=== PATIENT | male | born 1965 | race Caucasian/White ===

== ENCOUNTER 2025-02-28 13:48 | Inpatient (IN) | payer SELFPAY ==
[2025-02-28] VITALS (14 sets, daily range): BP systolic 94–164; BP diastolic 52–73; PULSE 68–83; RESP 14–20; TEMP 98.8–99.6; O2SAT 94–95
[~2025-02-28] VITALS: Ht 177.8 cm; Wt 105.2 kg
[2025-02-28] MEDS ORDERED: LIDOCAINE HCL 400MG/20ML VIAL ONE (14:58)
[2025-02-28] MEDS ORDERED: IOHEXOL 350 MG/ML 100ML INFUS..BTL IV ONE (14:59)
[2025-02-28] MEDS ORDERED: HEParin-NS 1,000 UNIT/500 ML 1,000 ML IV ONE (14:59)
[2025-02-28] MEDS ORDERED: NITROGLYCERIN 50MG VIAL ONE (14:59)
[2025-02-28] MEDS ORDERED: BIVALIRUDIN 250 MG/VIAL IV ONE (15:10)
[2025-02-28] MEDS ORDERED: MIDAZOLAM HCL 1 MG/ML 2ML VIAL ONE (15:10)
[2025-02-28 15:16] LABS: IMMATURE GRANULOCYTE ABSOLUTE 0.10 K/uL (0-1); NUCLEATED RED BLOOD CELLS 0.0 % (0.0-0.19); PLATELET COUNT (AUTO) 262 K/uL (130-400); RED BLOOD CELL COUNT(AUTO) 5.00 MIL/uL (4.50-6.20); RED CELL DISTRIBUTION WIDTH 13.1 % (11.0-15.5); WHITE BLOOD COUNT (AUTO) 14.1 K/uL (4.8-10.8)
[2025-02-28 15:27] LABS: INR 1.13 (0.85-1.15)
[2025-02-28 15:30] LABS: ERYTHROCYTE SEDIMENTATION RATE 49 MM/HR (0-20)
[2025-02-28] MEDS ORDERED: NITROGLYCERIN 0.4 MG SL TAB SL PRN ×2 (15:30→16:30)
[2025-02-28] MEDS ORDERED: MAGNESIUM 2GM PREMIX 50ML 50 ML IV SCH (15:30)
[2025-02-28] MEDS ORDERED: PoTASSium chl 10% ELIXIR 20MEQ 20 MEQ/15 ML UDCUP PO PRN (15:30)
[2025-02-28 15:41] LABS: ASPARTATE AMINOTRANSFERASE 108.0 U/L (10-37); CREATININE 1.0 mg/dL (0.5-1.3); GLOMERULAR FILTR. RATE CALC 87.0 mL/min (>90); GLUCOSE,RANDOM 203.0 mg/dL (70-105); LACTATE DEHYDROGENASE 608.0 U/L (81-234); LDL DIRECT 97.0 mg/dL (0-99); SODIUM SERUM 133.0 mmol/L (136-145); TOTAL PROTEIN, SERUM 7.2 g/dL (6.0-8.3); UREA NITROGEN, BLOOD 27.0 mg/dL (7-18)
--- NOTE | 2025-02-28 15:41 | CONS ---
Cardiac Consult Note CONSULT NOTE DATE OF SERVICE: REFERRING PROVIDER: JULI QUIROGA MD REASON FOR CONSULT: Non ST segment elevation myocardial infarction HPI: 60-year-old avid smoker who had a prior history of myocardial infarction in 2016 in [facility] and when she received two stents to unknown vessel who was in [place] at a job as he is a truck engine technician and states he experienced some significant chest discomfort went to the hospital was admitted had a coronary angiogram done through a right radial artery approach and was told they could not see previous stents and they also were unable to deliver equipment to the occluded vessel. He states he was treated medically and no balloons and stents were utilized. The patient then went on to return home on Tuesday from [place] and he states he was unable to get any of the medications that they had prescribed to him and he actually went an established care with a supervisor bottle machines and [place] by the name of Dr. Goldstein at heart [facility] and was given medications and he states yesterday he started having significant chest discomfort that would not resolve. The patient went to [facility] and [place] initial [place] [id number]. The patient had EKG changes consistent with ischemia. [facility] was notified and any artery ER transfer was established as patient was having ongoing symptoms of chest pain. The patient states prior to his event that took place on February 18 in [place] he has been symptom free from any chest pains discomfort or tightness. The patient states when he was dismissed he had not had any recurrent symptoms of chest pain until 1-1/2 days prior to admission on this hospitalization. The patient states that he was told in [place] that his heart was strong and indeed not week or compromised in ejection fraction ROS: No fever, headache, chest pain, abdominal pain, nausea, vomiting, or diarrhea. PMHX: Diabetes mellitus Prior NH with prior stent placement done in [facility] unknown breath Nicotine abuse smoking one pack per cigarettes daily Dyslipidemia PSHX: Noncontributory FH: Noncontributory in this patient with known coronary atherosclerosis SOCIAL: front load trash truck driver Smoker one pack per day recently reduced significantly PHYSICAL EXAMINATION: GENERAL: No acute distress. HEENT: Normocephalic, atraumatic. CARDIAC: Positive S1 and S2. No murmurs. LUNGS: Clear to auscultation bilaterally. ABDOMEN: Bowel sounds present, soft, nontender. EXTREMITIES: No edema bilaterally. NEUROLOGIC: Cranial nerves 2-12 grossly intact. PSYCHIATRIC: Calm. ASSESSMENT: Non ST segment elevation myocardial infarction Post infarct angina with prior NH in [place] February 18, 2025 PLAN: At this time we will proceed with coronary angiography. Risks and goals of procedure were discussed with the patient and he is willing to proceed. All questions has been answered. Further recommendations to follow up pending results of angiography. Postprocedure we will institute guideline directed medical therapy to include sodium glucose transport to inhibitor, beta blockade, TUAN inhibitor/ARB, dual antiplatelet therapy and high-dose statin. If patient indeed needs surgical revascularization would consider holding off on dual antiplatelet therapy and CT surgery consultation will be in order. Vital Signs 02/28/25 02/28/25 02/28/25 02/28/25 14:45 14:45 14:45 15:00 Temp 99.7 Pulse 75 82 72 Resp 20 20 20 B/P (MAP) 114/64 122/61 (81) 164/70 (101) Pulse Ox 95 95 96 96 O2 Delivery Nasal Cannula* Nasal Cannula O2 Flow Rate 2 2.0 FiO2 28 28 28 28 Laboratory Tests Test 02/28/25 15:07 White Blood Count 14.1 K/uL (4.8-10.8) Red Blood Count 5.00 MIL/uL (4.50-6.20) Hemoglobin 14.5 g/dL (14.0-18.0) Hematocrit 43.2 % (42-54) Mean Corpuscular Volume 86.4 fL (79-99) Mean Corpuscular Hemoglobin 29.0 pg (27.0-33.0) Mean Corpuscular Hemoglobin Concent 33.6 g/dL (32.0-36.0) Red Cell Distribution Width 13.1 % (11.0-15.5) Platelet Count 262 K/uL (130-400) Mean Platelet Volume 10.1 fL (7.5-10.5) Immature Granulocyte % (Auto) 0.7 % (0-1) Neutrophils (%) (Auto) 77.0 % (40.0-77.0) Lymphocytes (%) (Auto) 12.5 % (21.0-51.0) Monocytes (%) (Auto) 9.6 % (3.0-13.0) Eosinophils (%) (Auto) 0.0 % (0.0-8.0) Basophils (%) (Auto) 0.2 % (0.0-5.0) Neutrophils # (Auto) 10.9 K/uL (1.8-7.7) Lymphocytes # (Auto) 1.8 K/uL (1.0-4.8) Monocytes # (Auto) 1.4 K/uL (0.1-1.0) Eosinophils # (Auto) 0.00 K/uL (0.00-0.70) Basophils # (Auto) 0.03 K/uL (0.00-0.20) Absolute Immature Granulocyte (auto 0.10 K/uL (0-1) Nucleated Red Blood Cells 0.0 % (0.0-0.19) Erythrocyte Sedimentation Rate 49 MM/HR (0-20) Prothrombin Time 11.8 SEC (9.6-11.6) Prothromb Time International Ratio 1.13 (0.85-1.15) Activated Partial Thromboplast Time 51.2 SEC (26.3-35.5) Current Medications Medications Dose Ordered Sig/Patrick Route PRN Reason Start Time Stop Time Status Last Admin Lidocaine HCl 20 ml STK-MED ONCE .ROUTE 02/28/25 14:58 02/28/25 14:59 DC Iohexol 35,000 mg STK-MED ONCE IV 02/28/25 14:59 02/28/25 14:59 DC Nicardipine HCl 25 mg STK-MED ONCE IV 02/28/25 14:59 02/28/25 14:59 DC Heparin Sodium (Porcine) 10,000 unit STK-MED ONCE .ROUTE 02/28/25 14:59 02/28/25 14:59 DC Heparin Sodium/ Sodium Chloride 1,000 ml @ As Directed STK-MED ONCE IV 02/28/25 14:59 02/28/25 14:59 DC Nitroglycerin 50 mg STK-MED ONCE .ROUTE 02/28/25 14:59 02/28/25 14:59 DC Insulin Human Regular INSULIN SLIDING SCAL... ACHS SQ 02/28/25 16:30 03/30/25 16:29 Aspirin 81 mg DAILY PO 03/01/25 09:00 03/31/25 08:59 Famotidine 20 mg BID PO 02/28/25 21:00 03/30/25 20:59 Magnesium Sulfate 50 ml @ 0 mls/hr PROTOCOL IV 02/28/25 15:30 03/30/25 15:29 Fentanyl Citrate 100 mcg STK-MED ONCE .ROUTE 02/28/25 15:10 02/28/25 15:10 DC Midazolam HCl 2 mg STK-MED ONCE .ROUTE 02/28/25 15:10 02/28/25 15:10 DC Bivalirudin 250 mg STK-MED ONCE IV 02/28/25 15:10 02/28/25 15:10 DC Clopidogrel Bisulfate 75 mg DAILY PO 03/01/25 09:00 02/28/25 15:19 DC Amiodarone HCl 200 mg DAILY PO 03/01/25 09:00 03/31/25 08:59 Isosorbide Mononitrate 30 mg DAILY PO 03/01/25 09:00 03/31/25 08:59 Empaglifozin 25 mg DAILY PO 03/01/25 09:00 03/31/25 08:59 Clopidogrel Bisulfate 75 mg DAILY PO 03/01/25 09:00 03/31/25 08:59 Atorvastatin Calcium 40 mg HS PO 02/28/25 21:00 03/30/25 20:59 JULI QUIROGA MD Feb 28, 2025 15:41
[2025-02-28] MEDS ORDERED: GLIP5TAB15 PO (15:44)
[2025-02-28] MEDS ORDERED: RANO10005 PO (15:44)
[2025-02-28] MEDS ORDERED: METO25TA6 PO (15:44)
[2025-02-28] MEDS ORDERED: LISI40TA15 PO (15:44)
[2025-02-28] MEDS ORDERED: EMPA25TA PO (15:44)
[2025-02-28] MEDS ORDERED: AMIO200T73 PO ×2 (15:44)
[2025-02-28] MEDS ORDERED: ISOS30TA92 PO (15:44)
[2025-02-28 15:45] LABS: CREATINE KINASE, TOTAL 635.0 U/L (21-232)
[2025-02-28] MEDS ORDERED: ATROPINE 1MG SYG IVP ONE (15:54)
[2025-02-28] MEDS ORDERED: NOREPINEPHRINE BITARTRATE 1 MG/1 ML ML IV ONE ×2 (15:55→15:56)
[2025-02-28] MEDS ORDERED: IOHEXOL-350 50ML VIAL IV ONE (15:57)
[2025-02-28] MEDS ORDERED: RANO500T6 PO (16:01)
--- NOTE | 2025-02-28 16:51 | PRN ---
Left Heart Cath-Turk PROCEDURE: 1. Right common femoral arterial sheath placement. 2. Selective coronary angiogram. 3. Left heart catheterization. 4. Left ventriculogram. 5. Unsuccessful attempt at revascularization of chronically occluded right coronary artery INDICATIONS: [] Post infarct angina DESCRIPTION OF PROCEDURE: The patient was brought to the catheterization suite and prepped and draped in sterile fashion. An IV was started, if not already in place and both groins were exposed for arterial access. 1% lidocaine was used for local anesthesia and then a micropuncture kit was used to gain access and once free-flowing blood was seen, modified Seldinger technique was utilized to place a 6 Dominican sheath into the right common femoral artery. Next, preformed JL4 and JR4 Catheters were then used to selectively engage the [place] coronary vessels and multiple hand contrast injections were performed in different views to define the coronary anatomy. INTERVENTIONAL REPORT: Next a six Dominican JR4 guide catheter with sideholes was then placed into be takeoff of the right coronary artery which was occluded at the ostium. We were able to maintain pressure and initially I used a choice PT extra-support wire to try to cross the chronic total occlusion and then I used a tapered catheter for support what seemed to be subintimal and was unable to advance the wire further. Follow up contrast injection for allowing us of dye section perforation or any kind of staining that took place. It was felt attempts should be terminated as previous reception specialist in [place] approximately 10 days prior had also attempted to revascularize this vessel but were unsuccessful. At end of case a six Dominican angled pigtail was used across the aortic valve pressure measurements were obtained and then a left ventriculogram was done in the 30 ALMONTE position. Next a sheath shot was done and then a closure device was used to include Angio-Seal which was successful. No complications occurred. FINDINGS: The left main artery is free of any significant disease and it bifurcates into the LAD and left circumflex vessel. 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 It should be noted that in the mid LAD after the aneurysmal segment just after a small diagonal branch 2. Was a portion of the LAD that had an active myocardial bridge present which seemed to decrease in size approximately 50% in systole. The left circumflex vessel gives rise to a high obtuse marginal branch 1. Which bifurcates distally and is free of any significant disease. The ongoing interventricular left circumflex vessel bifurcates distally. This is a nondominant system. There are significant uber-ih-cuadw collaterals filling the RPDA and RPL. There was 100% flush occlusion essentially at the takeoff of the right coronary artery with a small sinoatrial branch noted. Once again the distal RCA has been filled with nxip-gi-rziwa collaterals. The ejection fraction was estimated approximately 50-55% with inferior wall hypokinesis present. There was no evidence of aortic stenosis or mitral regurgitation. JULI TURK MD Feb 28, 2025 16:51
--- NOTE | 2025-02-28 16:55 | HP ---
[facility] HISTORY AND PHYSICAL Date of Service: Feb 28, 2025 Time of Service: 16:55 HISTORY OF PRESENT ILLNESS: Date of service: 02/28/2025, patient was seen in [facility] room 211, 60-year-old male with history of hypertension, hyperlipidemia, type 2 diabetes mellitus, previous history of [place] in 2016 status post PCI with stent placement, recent history of [place] in [place] on 02/19/2025 who presented as a transfer from [facility] for management of NSTEMI. 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 He was hospitalized in [place] on 02/19/2025 after he presented with chest pain. He underwent coronary angiogram and was told that he had blockages which could not be opened up. He return back [place] the [place] on Tuesday and close to 12:30 a.m. today, he started having significant fzkfsnnp-ap-heihlo intensity chest pain. Lasted for several hours and prompted him to come to the ER for further evaluation in [facility]. On presentation to [facility], high sensitivity [place] [id number]. Patient was transferred to [facility] for further evaluation with cardiac catheterization/coronary angiogram. Patient was seen at bedside and states that chest pain is currently 4-5/10 in intensity. He has been taking all medications that were prescribed in [place]. Denies any Shortness or breath, syncope or dizziness. We will monitor this patient closely in ICU. Patient was already seen by Dr. Turk with plans for cardiac catheterization later today. REVIEW OF SYSTEMS CONSTITUTIONAL: Denies fevers, chills, or night sweats. No unintentional weight loss reported. NEUROLOGICAL: Denies headache, amaurosis fugax, motor weakness, sensory defi cit, vertigo/spinning sensation, gait abnormalities, or tremors. ENT: No hearing loss, otalgia, otorrhea, rhinitis, rhinorrhea, hoarseness, or sore throat. CARDIOVASCULAR: moderate to severe chest pain that started earlier today PULMONARY: Denies any shortness of breath, cough, phlegm/sputum, hemoptysis, pleuritic chest pain. SLEEP: Denies morning headaches, daytime somnolence or napping. Denies difficulty falling asleep, staying asleep, waking from sleep. Denies knowledge of snoring. GASTROINTESTINAL: Denies any type of dysphagia to either liquids or solids. Denies nausea, vomiting, pyrosis, early satiety, abdominal pain, diarrhea, constipation, or changes in stool consistency or caliber. Denies coffee-ground emesis, hematemesis, hematochezia, or melanotic stools. GENITOURINARY: Denies frequency, urgency, nocturia, hematuria or incontinence (Storage/Irritative symptoms.) Low urinary stream, straining to void, urinary intermittency or hesitancy, splitting of the voiding stream, terminal dribbling. ENDOCRINOLOGIC: Denies polyuria, polydipsia, polyphagia or heat/cold intolerances. HEMATOLOGIC: Denies thrombophilia/previous clots, or coagulopathy/bleeding disorders. ONCOLOGIC: Denies personal history of malignancy. DERMATOLOGIC: Denies rashes or pruritus. PSYCHIATRIC: Denies any suicidal or homicidal ideation. Denies hallucinations. PAST MEDICAL HISTORY: HTN, hyperlipidemia, history of [place] in 2016 in [facility] status post PCI, recent history of [place] requiring hospitalization in [place] on 02/19/2025, type 2 diabetes mellitus, obesity PAST SURGICAL HISTORY: Reports having had cardiac catheterization in 2016 and recently in [place] and 02/19/2025 PAST SOCIAL HISTORY: Denies significant alcohol consumption, smokes about a pack a day for long time, quit smoking about three days ago, denies any illicit drug use FAMILY HISTORY: Reports family history of heart disease Allergies: No known drug allergies Home medications: amiodarone 200 mg daily, Jardiance 25 mg daily, glipizide 5 mg b.i.d., isosorbide mononitrate 30 mg daily, lisinopril 40 mg daily, metoprolol [id number] mg b.i.d., ranolazine 500 mg twice daily Coded Allergies: No Known Drug Allergies (Unverified Allergy, Unknown, 02/28/25) PHYSICAL EXAM GENERAL APPEARANCE: The patient is awake, alert, and oriented, in no acute cardiopulmonary distress. NEUROLOGICAL: Cranial nerves II-XII grossly intact. Motor is 5/5 in bilateral upper and lower extremities proximal to distal. No sensory deficits. HEENT: Face is symmetric. Pupils are equal and reactive. Extraocular movements are intact. NECK: Supple. No JVD. No thyromegaly. No submental, submandibular, pre- /postauricular, occipital or supraclavicular lymphadenopathy. CHEST: Normal chest expansion. No Telemetry. LUNGS: Absence of any rales, rhonchi or any wheezing. CARDIOVASCULAR: Regular. S1 and S2 normal. No appreciable rubs, murmurs or gallops. ABDOMEN: Soft, nontender, and nondistended. There is no rebound, voluntary guarding, or rigidity. : Deferred. No Kirkpatrick. EXTREMITIES: Non-edematous and not cyanotic. No clubbing. Good capillary refill. SKIN: No skin breakdown. Vital Sign (Last 24 Hours) 02/28/25 02/28/25 14:45 15:00 Temp 99.7 Pulse 72 Resp 20 B/P (MAP) 164/70 (101) Pulse Ox 96 O2 Delivery Nasal Cannula O2 Flow Rate 2.0 FiO2 28 LABS: Laboratory: Test 02/28/25 15:07 Range/Units White Blood Count 14.1 H 4.8-10.8 K/uL Red Blood Count 5.00 4.50-6.20 MIL/uL Hemoglobin 14.5 14.0-18.0 g/dL Hematocrit 43.2 42-54 % Mean Corpuscular Volume 86.4 79-99 fL Mean Corpuscular Hemoglobin 29.0 27.0-33.0 pg Mean Corpuscular Hemoglobin Concent 33.6 32.0-36.0 g/dL Red Cell Distribution Width 13.1 11.0-15.5 % Platelet Count 262 130-400 K/uL Mean Platelet Volume 10.1 7.5-10.5 fL Immature Granulocyte % (Auto) 0.7 0-1 % Neutrophils (%) (Auto) 77.0 40.0-77.0 % Lymphocytes (%) (Auto) 12.5 L 21.0-51.0 % Monocytes (%) (Auto) 9.6 3.0-13.0 % Eosinophils (%) (Auto) 0.0 0.0-8.0 % Basophils (%) (Auto) 0.2 0.0-5.0 % Neutrophils # (Auto) 10.9 H 1.8-7.7 K/uL Lymphocytes # (Auto) 1.8 1.0-4.8 K/uL Monocytes # (Auto) 1.4 H 0.1-1.0 K/uL Eosinophils # (Auto) 0.00 0.00-0.70 K/uL Basophils # (Auto) 0.03 0.00-0.20 K/uL Absolute Immature Granulocyte (auto 0.10 0-1 K/uL Nucleated Red Blood Cells 0.0 0.0-0.19 % Erythrocyte Sedimentation Rate 49 H 0-20 MM/HR Prothrombin Time 11.8 H 9.6-11.6 SEC Prothromb Time International Ratio 1.13 0.85-1.15 Activated Partial Thromboplast Time 51.2 H 26.3-35.5 SEC Sodium Level 133 L 136-145 mmol/L Potassium Level 4.1 3.5-5.1 mmol/L Chloride Level 100 L 101-111 mmol/L Carbon Dioxide Level 23 21-32 mmol/L Blood Urea Nitrogen 27 H 7-18 mg/dL Creatinine 1.0 0.5-1.3 mg/dL Glomerular Filtration Rate Calc 87 >90 mL/min Random Glucose 203 H 70-105 mg/dL Hemoglobin A1c 10.0 H 4.0-6.0 % Estimated Average Glucose (eAG) 240 H 70-126 mg/dL Total Calcium 8.8 8.5-10.1 mg/dL Magnesium Level 2.30 1.80-2.40 mg/dL Total Bilirubin 1.2 H 0.2-1.0 mg/dL Aspartate Amino Transf (AST/SGOT) 108 H 10-37 U/L Alanine Aminotransferase (ALT/SGPT) 47 12-78 U/L Alkaline Phosphatase 134 50-136 U/L Lactate Dehydrogenase 608 H 81-234 U/L Total Creatine Kinase 635 *H 21-232 U/L Troponin I High Sensitivity 53545.6 *H 4-75 ng/L C-Reactive Protein, Quantitative 182.10 H 0.5-3.0 mg/L Total Protein 7.2 6.0-8.3 g/dL Albumin 3.3 L 3.5-5.0 g/dL Triglycerides Level 110 30-200 mg/dL Cholesterol Level 158 <200 mg/dL LDL Cholesterol 97 0-99 mg/dL HDL Cholesterol 41 29-71 mg/dL Procalcitonin 0.16 0.05-0.5 ng/mL Thyroid Stimulating Hormone (TSH) 1.14 0.36-3.74 uIU/mL Current Medications Medications (Trade) Dose Ordered Sig/Patrick Route PRN Reason Start Time Stop Time Status Last Admin Dose Admin Amiodarone HCl (pacERONE 200MG) 200 mg DAILY PO 03/01/25 09:00 03/31/25 08:59 Aspirin (Aspirin 81mg Chew Tab) 81 mg DAILY PO 03/01/25 09:00 03/31/25 08:59 Atorvastatin Calcium (LIPItor 40MG) 40 mg HS PO 02/28/25 21:00 03/30/25 20:59 Clopidogrel Bisulfate (plaVIX 75MG) 75 mg DAILY PO 03/01/25 09:00 02/28/25 15:19 DC Clopidogrel Bisulfate (plaVIX 75MG) 75 mg DAILY PO 03/01/25 09:00 03/31/25 08:59 Empaglifozin (Jardiance 25mg) 25 mg DAILY PO 03/01/25 09:00 03/31/25 08:59 Famotidine (Pepcid 20mg Tab) 20 mg BID PO 02/28/25 21:00 03/30/25 20:59 Heparin Sodium/ Dextrose 250 ml @ 0 mls/hr PROTOCOL IV 02/28/25 18:30 03/30/25 18:29 UNV Insulin Human Regular (humuLIN R 100 UNIT/ML 3ML) INSULIN SLIDING SCAL... ACHS SQ 02/28/25 16:30 03/30/25 16:29 Isosorbide Mononitrate (Imdur 30mg Sr) 30 mg DAILY PO 03/01/25 09:00 03/31/25 08:59 Lisinopril (Prinivil 40mg) 40 mg DAILY PO 03/01/25 09:00 03/31/25 08:59 Magnesium Sulfate 50 ml @ 0 mls/hr PROTOCOL IV 02/28/25 15:30 03/30/25 15:29 Miscellaneous Medication (Ranolazine (Ranolazine ER)) 1 tab BID PO 02/28/25 21:00 02/28/25 16:01 DC Morphine Sulfate (morPHINE 2MG SYG) 2 mg Q6H PRN IVP SEVERE PAIN (7-10) 02/28/25 15:30 03/07/25 15:29 Nitroglycerin (Nitrostat) 0.4 mg AD PRN SL CHEST PAIN 02/28/25 15:30 03/30/25 15:29 Nitroglycerin (Nitrostat) 0.4 mg AD PRN SL CHEST PAIN 02/28/25 16:30 03/30/25 16:29 Potassium Chloride 100 ml @ 100 mls/hr AD PRN IV POTASSIUM PROTOCOL 02/28/25 15:30 03/30/25 15:29 Potassium Chloride (K-Dur/Klor-Con 20meq) 20 meq AD PRN PO POTASSIUM PROTOCOL 02/28/25 15:30 03/30/25 15:29 Potassium Chloride (KCl 10% Elixir 20meq/15ml) 20 meq AD PRN PO POTASSIUM PROTOCOL 02/28/25 15:30 03/30/25 15:29 Sodium Chloride 1,000 ml @ 100 mls/hr Q10H IV 02/28/25 16:30 02/28/25 22:29 DIAGNOSTICS / RADIOLOGY: none ASSESSMENT: Non ST-elevation WY/ACS, POA Recent history of [place] in 02/19/2025 in [place], POA Remote history of [place] in 2016 status post PCI in [place], POA Obesity, POA Tobacco use disorder, POA Hypertension, POA Hyperlipidemia, POA Type 2 diabetes mellitus, uncontrolled, POA Leukocytosis, POA PLAN: Patient will be admitted to CCU Patient will be kept NPO for cardiac catheterization/angiogram later today for management of NSTEMI Continue with dual antiplatelet therapy with aspirin and Plavix Patient will be kept on heparin drip Patient to continue with guideline directed medical therapy with lisinopril 40 mg daily, metoprolol tartrate 25 mg twice daily, Jardiance 25 mg daily We will obtain a 2D echocardiogram to assess LVEF and rule out significant wall motion abnormality Patient is being prescribed amiodarone 200 mg daily as outpatient which will be continued, patient is unsure if he has any issues with cardiac arrhythmias previously Patient reports having issues with symptoms of sleep apnea, we will have pulmonology follow up with this patient, patient will benefit from sleep study as outpatient We will maintain potassium greater than four and magnesium greater than two We will start patient on basal insulin with Lantus 10 units tonight, we will keep patient on sliding scale insulin a.c. and HS All labs will be repeated in the morning Prognosis: Guarded Plan of care was discussed with patient at bedside, Ap Masterson MD Advanced Care Planning: Which of the following were discussed: Hospice care: Yes __ No _X_ Therapeutic options: Yes __X No __ Advance directives: Yes _X_ No __ Other discussions: Discussed with who?: Patient Voluntary nature of this service was explained to the patient? Yes _x_ No __ Amount of time spent: 20 minutes AP MASTERSON MD Feb 28, 2025 16:55
[2025-02-28] MEDS: 0.9%NACL 1000ML 1,000 ML IV SCH (18:24)
[2025-02-28] MEDS: FAMOTIDINE 20MG TAB PO SCH (21:08)
[2025-02-28] MEDS: RANOLAZINE 500 MG TAB.SR.12H PO SCH (21:08)
[2025-03-01] VITALS (48 sets, daily range): BP systolic 90–140; BP diastolic 50–84; PULSE 60–83; RESP 12–28; TEMP 97.9–98.8; O2SAT 94–96
[2025-03-01 00:47] LABS: INR 1.12 (0.85-1.15)
[2025-03-01 04:20] LABS: IMMATURE GRANULOCYTE ABSOLUTE 0.08 K/uL (0-1); NUCLEATED RED BLOOD CELLS 0.0 % (0.0-0.19); PLATELET COUNT (AUTO) 221 K/uL (130-400); RED BLOOD CELL COUNT(AUTO) 4.47 MIL/uL (4.50-6.20); RED CELL DISTRIBUTION WIDTH 13.1 % (11.0-15.5); WHITE BLOOD COUNT (AUTO) 11.4 K/uL (4.8-10.8)
[2025-03-01 04:46] LABS: ASPARTATE AMINOTRANSFERASE 73.0 U/L (10-37); CREATININE 1.0 mg/dL (0.5-1.3); GLOMERULAR FILTR. RATE CALC 87.0 mL/min (>90); GLUCOSE,RANDOM 151.0 mg/dL (70-105); SODIUM SERUM 136.0 mmol/L (136-145); TOTAL PROTEIN, SERUM 6.5 g/dL (6.0-8.3); UREA NITROGEN, BLOOD 38.0 mg/dL (7-18)
--- NOTE | 2025-03-01 07:46 | PN ---
PROGRESS NOTE PROBLEM LIST: [] Recent non ST segment elevation myocardial infarction on February 18 in [place] Per patient history no percutaneous coronary revascularization was completed Post infarct angina with possible associated pericarditis Diabetes mellitus Nicotine abuse Acute diastolic congestive heart failure present on admission Repeat coronary angiogram revealing a flush occlusion of ostial RCA with patent left coronary system with aneurysmal changes noted and a mid LAD myocardial bridge INTERIM HISTORY OF PRESENT ILLNESS: Overnight patient was maintained on heparin drip and cardiac medications and had no recurrent symptoms. REVIEW OF SYSTEMS: No fever, headache, chest pain, abdominal pain, nausea, vomiting, or diarrhea. VITAL SIGNS Vital Signs Date Time Temp Pulse Resp B/P (MAP) Pulse Ox O2 Delivery O2 Flow Rate FiO2 03/01/25 06:00 69 18 113/52 96 Room Air 03/01/25 04:00 0 21 03/01/25 04:00 98.2 Laboratory Tests 02/28/25 15:07 03/01/25 03:55 LABS/MEDS Laboratory Tests Test 02/28/25 15:07 02/28/25 16:57 02/28/25 20:45 03/01/25 00:28 White Blood Count 14.1 K/uL (4.8-10.8) H Red Blood Count 5.00 MIL/uL (4.50-6.20) Hemoglobin 14.5 g/dL (14.0-18.0) Hematocrit 43.2 % (42-54) Mean Corpuscular Volume 86.4 fL (79-99) Mean Corpuscular Hemoglobin 29.0 pg (27.0-33.0) Mean Corpuscular Hemoglobin Concent 33.6 g/dL (32.0-36.0) Red Cell Distribution Width 13.1 % (11.0-15.5) Platelet Count 262 K/uL (130-400) Mean Platelet Volume 10.1 fL (7.5-10.5) Immature Granulocyte % (Auto) 0.7 % (0-1) Neutrophils (%) (Auto) 77.0 % (40.0-77.0) Lymphocytes (%) (Auto) 12.5 % (21.0-51.0) L Monocytes (%) (Auto) 9.6 % (3.0-13.0) Eosinophils (%) (Auto) 0.0 % (0.0-8.0) Basophils (%) (Auto) 0.2 % (0.0-5.0) Neutrophils # (Auto) 10.9 K/uL (1.8-7.7) H Lymphocytes # (Auto) 1.8 K/uL (1.0-4.8) Monocytes # (Auto) 1.4 K/uL (0.1-1.0) H Eosinophils # (Auto) 0.00 K/uL (0.00-0.70) Basophils # (Auto) 0.03 K/uL (0.00-0.20) Absolute Immature Granulocyte (auto 0.10 K/uL (0-1) Nucleated Red Blood Cells 0.0 % (0.0-0.19) Erythrocyte Sedimentation Rate 49 MM/HR (0-20) H Prothrombin Time 11.8 SEC (9.6-11.6) H 11.7 SEC (9.6-11.6) H Prothromb Time International Ratio 1.13 (0.85-1.15) 1.12 (0.85-1.15) Activated Partial Thromboplast Time 51.2 SEC (26.3-35.5) H 47.3 SEC (26.3-35.5) H Sodium Level 133 mmol/L (136-145) L Potassium Level 4.1 mmol/L (3.5-5.1) Chloride Level 100 mmol/L (101-111) L Carbon Dioxide Level 23 mmol/L (21-32) Blood Urea Nitrogen 27 mg/dL (7-18) H Creatinine 1.0 mg/dL (0.5-1.3) Glomerular Filtration Rate Calc 87 mL/min (>90) Random Glucose 203 mg/dL (70-105) H Hemoglobin A1c 10.0 % (4.0-6.0) H Estimated Average Glucose (eAG) 240 mg/dL (70-126) H Total Calcium 8.8 mg/dL (8.5-10.1) Magnesium Level 2.30 mg/dL (1.80-2.40) Total Bilirubin 1.2 mg/dL (0.2-1.0) H Aspartate Amino Transf (AST/SGOT) 108 U/L (10-37) H Alanine Aminotransferase (ALT/SGPT) 47 U/L (12-78) Alkaline Phosphatase 134 U/L (50-136) Lactate Dehydrogenase 608 U/L (81-234) H Total Creatine Kinase 635 U/L (21-232) *H Troponin I High Sensitivity 99282.6 ng/L (4-75) *H C-Reactive Protein, Quantitative 182.10 mg/L (0.5-3.0) H Total Protein 7.2 g/dL (6.0-8.3) Albumin 3.3 g/dL (3.5-5.0) L Triglycerides Level 110 mg/dL (30-200) Cholesterol Level 158 mg/dL (<200) LDL Cholesterol 97 mg/dL (0-99) HDL Cholesterol 41 mg/dL (29-71) Procalcitonin 0.16 ng/mL (0.05-0.5) Thyroid Stimulating Hormone (TSH) 1.14 uIU/mL (0.36-3.74) Whole Blood Glucose 171 MG/DL (70-110) H 246 MG/DL (70-110) H Test 03/01/25 03:55 03/01/25 06:09 White Blood Count 11.4 K/uL (4.8-10.8) H Red Blood Count 4.47 MIL/uL (4.50-6.20) L Hemoglobin 13.2 g/dL (14.0-18.0) L Hematocrit 38.8 % (42-54) L Mean Corpuscular Volume 86.8 fL (79-99) Mean Corpuscular Hemoglobin 29.5 pg (27.0-33.0) Mean Corpuscular Hemoglobin Concent 34.0 g/dL (32.0-36.0) Red Cell Distribution Width 13.1 % (11.0-15.5) Platelet Count 221 K/uL (130-400) Mean Platelet Volume 10.1 fL (7.5-10.5) Immature Granulocyte % (Auto) 0.7 % (0-1) Neutrophils (%) (Auto) 69.6 % (40.0-77.0) Lymphocytes (%) (Auto) 17.4 % (21.0-51.0) L Monocytes (%) (Auto) 11.8 % (3.0-13.0) Eosinophils (%) (Auto) 0.1 % (0.0-8.0) Basophils (%) (Auto) 0.4 % (0.0-5.0) Neutrophils # (Auto) 7.9 K/uL (1.8-7.7) H Lymphocytes # (Auto) 2.0 K/uL (1.0-4.8) Monocytes # (Auto) 1.3 K/uL (0.1-1.0) H Eosinophils # (Auto) 0.01 K/uL (0.00-0.70) Basophils # (Auto) 0.04 K/uL (0.00-0.20) Absolute Immature Granulocyte (auto 0.08 K/uL (0-1) Nucleated Red Blood Cells 0.0 % (0.0-0.19) Sodium Level 136 mmol/L (136-145) Potassium Level 3.7 mmol/L (3.5-5.1) Chloride Level 103 mmol/L (101-111) Carbon Dioxide Level 20 mmol/L (21-32) L Blood Urea Nitrogen 38 mg/dL (7-18) H Creatinine 1.0 mg/dL (0.5-1.3) Glomerular Filtration Rate Calc 87 mL/min (>90) Random Glucose 151 mg/dL (70-105) H Total Calcium 8.3 mg/dL (8.5-10.1) L Magnesium Level 2.60 mg/dL (1.80-2.40) H Total Bilirubin 1.1 mg/dL (0.2-1.0) H Aspartate Amino Transf (AST/SGOT) 73 U/L (10-37) H Alanine Aminotransferase (ALT/SGPT) 41 U/L (12-78) Alkaline Phosphatase 121 U/L (50-136) Total Protein 6.5 g/dL (6.0-8.3) Albumin 3.0 g/dL (3.5-5.0) L Whole Blood Glucose 143 MG/DL (70-110) H Current Medications Lidocaine HCl 20 ml STK-MED ONCE .ROUTE; Start 02/28/25 at 14:58; Stop 02/28/25 at 14:59; Status DC Iohexol 35,000 mg STK-MED ONCE IV; Start 02/28/25 at 14:59; Stop 02/28/25 at 14:59; Status DC Nicardipine HCl 25 mg STK-MED ONCE IV; Start 02/28/25 at 14:59; Stop 02/28/25 at 14:59; Status DC Heparin Sodium (Porcine) 10,000 unit STK-MED ONCE .ROUTE; Start 02/28/25 at 14:59; Stop 02/28/25 at 14:59; Status DC Heparin Sodium/ Sodium Chloride 1,000 ml @ As Directed STK-MED ONCE IV; Start 02/28/25 at 14:59; Stop 02/28/25 at 14:59; Status DC Nitroglycerin 50 mg STK-MED ONCE .ROUTE; Start 02/28/25 at 14:59; Stop 02/28/25 at 14:59; Status DC Insulin Human Regular INSULIN SLIDING SCAL... ACHS SQ Last administered on 02/28/25at 21:10; Start 02/28/25 at 16:30; Stop 03/30/25 at 16:29 Aspirin 81 mg DAILY PO; Start 03/01/25 at 09:00; Stop 03/31/25 at 08:59 Famotidine 20 mg BID PO Last administered on 02/28/25at 21:08; Start 02/28/25 at 21:00; Stop 03/30/25 at 20:59 Potassium Chloride 100 ml @ 100 mls/hr AD PRN IV; Start 02/28/25 at 15:30; Stop 03/30/25 at 15:29 Potassium Chloride 20 meq AD PRN PO; Start 02/28/25 at 15:30; Stop 03/30/25 at 15:29 Potassium Chloride 20 meq AD PRN PO; Start 02/28/25 at 15:30; Stop 03/30/25 at 15:29 Magnesium Sulfate 50 ml @ 0 mls/hr PROTOCOL IV; Start 02/28/25 at 15:30; Stop 03/30/25 at 15:29 Fentanyl Citrate 100 mcg STK-MED ONCE .ROUTE; Start 02/28/25 at 15:10; Stop 02/28/25 at 15:10; Status DC Midazolam HCl 2 mg STK-MED ONCE .ROUTE; Start 02/28/25 at 15:10; Stop 02/28/25 at 15:10; Status DC Bivalirudin 250 mg STK-MED ONCE IV; Start 02/28/25 at 15:10; Stop 02/28/25 at 15:10; Status DC Clopidogrel Bisulfate 75 mg DAILY PO; Start 03/01/25 at 09:00; Stop 02/28/25 at 15:19; Status DC Amiodarone HCl 200 mg DAILY PO; Start 03/01/25 at 09:00; Stop 03/31/25 at 08:59 Isosorbide Mononitrate 30 mg DAILY PO; Start 03/01/25 at 09:00; Stop 03/31/25 at 08:59 Empaglifozin 25 mg DAILY PO; Start 03/01/25 at 09:00; Stop 03/31/25 at 08:59 Clopidogrel Bisulfate 75 mg DAILY PO; Start 03/01/25 at 09:00; Stop 03/31/25 at 08:59 Nitroglycerin 0.4 mg AD PRN SL; Start 02/28/25 at 15:30; Stop 03/30/25 at 15:29 Atorvastatin Calcium 40 mg HS PO Last administered on 02/28/25at 21:08; Start 02/28/25 at 21:00; Stop 03/30/25 at 20:59 Morphine Sulfate 2 mg Q6H PRN IVP; Start 02/28/25 at 15:30; Stop 03/07/25 at 15:29 Atropine Sulfate 1 mg STK-MED ONCE IVP; Start 02/28/25 at 15:54; Stop 02/28/25 at 15:55; Status DC Norepinephrine Bitartrate 4 mg STK-MED ONCE IV; Start 02/28/25 at 15:55; Stop 02/28/25 at 15:55; Status DC Lisinopril 40 mg DAILY PO; Start 03/01/25 at 09:00; Stop 03/01/25 at 05:52; Status DC Miscellaneous Medication 1 tab BID PO; Start 02/28/25 at 21:00; Stop 02/28/25 at 16:01; Status DC Norepinephrine Bitartrate 4 mg STK-MED ONCE IV; Start 02/28/25 at 15:56; Stop 02/28/25 at 15:56; Status DC Iohexol 50 ml STK-MED ONCE IV; Start 02/28/25 at 15:57; Stop 02/28/25 at 15:57; Status DC Sodium Chloride 1,000 ml @ 100 mls/hr Q10H IV Last administered on 02/28/25at 18:24; Start 02/28/25 at 16:30; Stop 02/28/25 at 22:29; Status DC Nitroglycerin 0.4 mg AD PRN SL; Start 02/28/25 at 16:30; Stop 03/30/25 at 16:29 Heparin Sodium/ Dextrose 250 ml @ 0 mls/hr PROTOCOL IV Last administered on 02/28/25at 18:40; Start 02/28/25 at 18:30; Stop 03/30/25 at 18:29 Insulin Glargine 10 units HS SQ Last administered on 02/28/25at 21:11; Start 02/28/25 at 21:00; Stop 03/30/25 at 20:59 Ranolazine 500 mg BID PO Last administered on 02/28/25at 21:08; Start 02/28/25 at 21:00; Stop 03/30/25 at 20:59 Lisinopril 40 mg DAILY PO; Start 03/01/25 at 09:00; Stop 03/31/25 at 08:59 Metoprolol Tartrate 25 mg BID PO; Start 03/01/25 at 09:00; Stop 03/31/25 at 08:59 PHYSICAL EXAMINATION: GENERAL: No acute distress. HEENT: Normocephalic, atraumatic. CARDIAC: Positive S1 and S2. No rub noted No murmurs. LUNGS: Clear to auscultation bilaterally. ABDOMEN: Bowel sounds present, soft, nontender. EXTREMITIES: No edema bilaterally. NEUROLOGIC: Cranial nerves 2-12 grossly intact. PSYCHIATRIC: Calm. TELEMETRY: Sinus rhythm ASSESSMENT: []Recent non ST segment elevation myocardial infarction on February 18 in [place] Per patient history no percutaneous coronary revascularization was completed Post infarct angina with possible associated pericarditis Diabetes mellitus Nicotine abuse Acute diastolic congestive heart failure present on admission Repeat coronary angiogram revealing a flush occlusion of ostial RCA with patent left coronary system with aneurysmal changes noted and a mid LAD myocardial bridge PLAN: [] Patient's C-reactive protein was significantly elevated and patient's EKG does seemed to be consistent with a pericarditis present. We will check 2D echocardiography. We will initiate high-dose aspirin therapy. In regards to patient's right coronary artery he has made significant collateral flow from left coronary system and I am not inclined to make a 2nd albeit a 3rd attempt in total to try and revascularize this vessel percutaneously. If ejection fraction remains normal I think medical management would be the patient's best option. We will await results of 2D echocardiography and see if any effusion is present. All questions have been answered. The patient can be moved out of the ICU setting. JULI QUIROGA MD Mar 01, 2025 07:46
[2025-03-01] MEDS: LISINOPRIL 40 MG TABLET PO SCH (08:43)
[2025-03-01] MEDS: ISOSORBIDE MONO 30MG SR TAB PO SCH (08:44)
[2025-03-01] MEDS: EMPAGLIFLOZIN 25MG TABLET PO SCH (08:44)
[2025-03-01] MEDS: ASPIRIN 81MG CHEW TAB PO SCH (08:44)
[2025-03-01] MEDS ORDERED: LISINOPRIL 40 MG TABLET PO SCH (09:00)
--- NOTE | 2025-03-01 09:15 | NUR ---
[facility] ICU Skin Assessment: Patient assessed by wound healing team. Patient with no wounds or skin breakdown noted. Assessment and recommendations provided to primary nurse. Education provided. Addendum: 03/01/25 at 1146 by TIMO AKINS RN RN/ Amended: Links added.
--- NOTE | 2025-03-01 09:37 | HMCSR ---
APPROVED REPORT EXAM: Two-dimensional and M-mode echocardiogram with Doppler and color Doppler. INDICATION ICD: Non ST-elevation AK I21.4, Acute coronary syndrome 2D Dimensions RVDd4.7 cmLVEF(%)64.9 (>50%)LVED Vol(simp.)78.0 mL IVSd1.0 (0.7-1.1cm)FS(%)36 %LVES Vol(simp.)42.0 mL LVDd4.9 (3.8-5.6cm)LA (2D)4.5 (1.6-4.0cm)LVEF(%, simp.)46 % PWd1.1 (0.7-1.1cm)Ao Root(2D)4.0 (2.0-3.7cm)LA ESV INDEX (BP)21.62 mL/m2 IVSs1.8 cmLVOT diam2.2 (1.8-2.4cm) LVDs3.2 (2.5-4.0cm)IVC diam2.3 cm PWs2.0 cm Deformation Strain Apical 4-13.2 % Apical 2-10.4 % Apical 3-6.6 % Global Strain-10.0 % M-Mode Dimensions EPSS0.5 cm LA (MM)4.6 (1.6-4.0cm) Ao Root(MM)3.9 (2.0-3.7cm) Aortic Valve AoV Vmax1.2 m/James Peak GR5.5 mmHgLVOT Vmax1.0 m/s AoV VTI0.2 mAo Mean GR3.3 mmHgLVOT VTI0.13 m WHITNEY (VMAX)3.19 cm2AVA (VTI) 3.2 cm2 Mitral Valve MV E Vmax74.7 cm/sDECEL [id number] ms MV A Vmax50.2 cm/sP 1/2 T47 ms E/A ratio1.5MVA (PHT)4.7 cm2 TDI E/E' Railfo20.6E/E' Lateral7.5 Medial E' Peak V5.91 cm/sLateral E' Peak V9.98 cm/s Pulmonary Valve PV Vmax0.9 m/sPV Mean GR1.9 mmHg PV Peak GR3.1 mmHg Tricuspid Valve TR Vmax1.6 m/sRAP (EST) 15 [id number] mmHg TR Peak GR10.3 mmHg Left Ventricle The left ventricle is normal size. GLS -10.0% Inferior septum posterior and inferior wall hypokinesis noted moderate There is normal left ventricular wall thickness. LVEF is 45-50%. No left ventricle th rombus noted on this study. Stage I diastolic dysfunction. Right Ventricle The right ventricle is moderately dilated. Right ventricular systolic function is severely reduced. Atria The left atrium size is normal. The right atrium size is normal. Aortic Valve Aortic valve is trileaflet and opens well. No aortic regurgitation is present. There is no aortic senia vular stenosis. Mitral Valve The mitral valve is normal in structure. There is no mitral valve regurgitation noted. There is no mi tral valve stenosis. Tricuspid Valve The tricuspid valve is normal in structure. There is trace of tricuspid valve regurgitation noted. Pulmonic Valve The pulmonary valve is normal in structure. There is no pulmonic valvular regurgitation. Great Vessels The aortic root is normal in size. IVC is dilated and collapses <50% with inspiration. Pericardium There is no pericardial effusion. Other Information Quality : Technically difficult study due to body habitus Conclusion LVEF is 45-50%. Stage I diastolic dysfunction. GLS -10.0% Inferior septum posterior and inferior wall hypokinesis noted moderate The aortic root is normal in size. There is no pericardial effusion.
--- NOTE | 2025-03-01 09:44 | CONS ---
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 Acute on chronic HFpEF w/ ICM and EF of 45-50% poa Repeat coronary angiogram revealing a flush occlusion of ostial RCA with patent left coronary system with aneurysmal changes noted and a mid LAD myocardial bridge Hypertension, POA Hyperlipidemia, POA Type 2 diabetes mellitus, uncontrolled, POA Leukocytosis, POA- Recent history of RI in 02/19/2025 in [place], POA w/ no PCI Remote history of RI in 2016 status post PCI in [place], POA Obesity, POA Tobacco use disorder, POA HPI: This is a 60 yr old male with a past medical Hx of nicotine abuse, prior RI in 2016w/ PCI and 2 stent placement, 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 The patient went to [facility] on 02/28/25 due to continues with discomfort and chest pain, during workup high sensitive trop 17K, the patient also demonstrated ekg changes consistent with ischemia. He was sent to [facility] for evaluation of chest pain. He underwent LHC by Dr Turk with unsuccessful PCI of chronic occluded RCA. Pt was admitted to ICU by [facility] team and were consulted for [facility]. On abasement pt awake alert and oriented x 3 with no distress. He is currently 0n heparin gtt and therapeutic. PAST MEDICAL HX: see above PAST SURGICAL HX: noncontributory SOCIAL HISTORY: No tobacco, ETOH, or illicit drug use Coded Allergies: No Known Drug Allergies (Unverified Allergy, Unknown, 02/28/25) REVIEW OF SYSTEMS: 12 point ROS reviewed with patient. Pertinent positives mentioned above. Otherwise negative. PHYSICAL EXAM: GENERAL: alert, weak, awake oriented x 3 HEENT: EOMI, Sclera non icteric, moist mucosa NECK: Supple, no JVD, trachea midline LUNGS: Diminished breath sounds bilaterally. No wheezes HEART: Regular rate and rhythm. Normal S1 and S2, without murmurs ABD: Abdomen soft, nontender. Bowel sounds present EXT: No clubbing cyanosis or edema NEURO: Alert and oriented to person, follows commands Vital Signs (last 8hr) Date Time Temp Pulse Resp B/P (MAP) Pulse Ox O2 Delivery O2 Flow Rate FiO2 03/01/25 09:00 73 16 94 21 03/01/25 08:45 70 16 93 21 03/01/25 08:39 80 16 111/56 (74) 95 21 03/01/25 08:30 71 18 94 21 03/01/25 08:15 75 16 95 21 03/01/25 08:00 76 18 94 21 03/01/25 08:00 98.8 03/01/25 07:45 71 13 94 21 03/01/25 07:41 68 14 119/58 (78) 93 21 03/01/25 07:30 70 19 95 21 03/01/25 07:15 68 19 94 21 03/01/25 07:00 71 14 95 21 03/01/25 06:45 72 14 95 21 03/01/25 06:00 69 18 113/52 96 Room Air 03/01/25 05:00 68 16 102/58 91 Room Air 03/01/25 04:00 94 Room Air* 0 21 03/01/25 04:00 98.2 68 17 94/54 96 Room Air 03/01/25 03:00 70 21 91/52 96 Room Air 03/01/25 02:00 71 14 93/53 95 Room Air LABS: Hematology Labs: Test 03/01/25 03:55 02/28/25 15:07 Range/Units White Blood Count 11.4 H 4.8-10.8 K/uL Red Blood Count 4.47 L 4.50-6.20 MIL/uL Hemoglobin 13.2 L 14.0-18.0 g/dL Hematocrit 38.8 L 42-54 % Mean Corpuscular Volume 86.8 79-99 fL Mean Corpuscular Hemoglobin 29.5 27.0-33.0 pg Mean Corpuscular Hemoglobin Concent 34.0 32.0-36.0 g/dL Red Cell Distribution Width 13.1 11.0-15.5 % Platelet Count 221 130-400 K/uL Mean Platelet Volume 10.1 7.5-10.5 fL Immature Granulocyte % (Auto) 0.7 0-1 % Neutrophils (%) (Auto) 69.6 40.0-77.0 % Lymphocytes (%) (Auto) 17.4 L 21.0-51.0 % Monocytes (%) (Auto) 11.8 3.0-13.0 % Eosinophils (%) (Auto) 0.1 0.0-8.0 % Basophils (%) (Auto) 0.4 0.0-5.0 % Neutrophils # (Auto) 7.9 H 1.8-7.7 K/uL Lymphocytes # (Auto) 2.0 1.0-4.8 K/uL Monocytes # (Auto) 1.3 H 0.1-1.0 K/uL Eosinophils # (Auto) 0.01 0.00-0.70 K/uL Basophils # (Auto) 0.04 0.00-0.20 K/uL Absolute Immature Granulocyte (auto 0.08 0-1 K/uL Nucleated Red Blood Cells 0.0 0.0-0.19 % Erythrocyte Sedimentation Rate 49 H 0-20 MM/HR Chemistry Labs: Test 03/01/25 06:09 03/01/25 03:55 02/28/25 15:07 Range/Units Whole Blood Glucose 143 H 70-110 MG/DL Sodium Level 136 136-145 mmol/L Potassium Level 3.7 3.5-5.1 mmol/L Chloride Level 103 101-111 mmol/L Carbon Dioxide Level 20 L 21-32 mmol/L Blood Urea Nitrogen 38 H 7-18 mg/dL Creatinine 1.0 0.5-1.3 mg/dL Glomerular Filtration Rate Calc 87 >90 mL/min Random Glucose 151 H 70-105 mg/dL Total Calcium 8.3 L 8.5-10.1 mg/dL Magnesium Level 2.60 H 1.80-2.40 mg/dL Total Bilirubin 1.1 H 0.2-1.0 mg/dL Aspartate Amino Transf (AST/SGOT) 73 H 10-37 U/L Alanine Aminotransferase (ALT/SGPT) 41 12-78 U/L Alkaline Phosphatase 121 50-136 U/L Total Protein 6.5 6.0-8.3 g/dL Albumin 3.0 L 3.5-5.0 g/dL Hemoglobin A1c 10.0 H 4.0-6.0 % Estimated Average Glucose (eAG) 240 H 70-126 mg/dL Lactate Dehydrogenase 608 H 81-234 U/L Total Creatine Kinase 635 *H 21-232 U/L Troponin I High Sensitivity 63350.6 *H 4-75 ng/L C-Reactive Protein, Quantitative 182.10 H 0.5-3.0 mg/L Triglycerides Level 110 30-200 mg/dL Cholesterol Level 158 <200 mg/dL LDL Cholesterol 97 0-99 mg/dL HDL Cholesterol 41 29-71 mg/dL Procalcitonin 0.16 0.05-0.5 ng/mL Thyroid Stimulating Hormone (TSH) 1.14 0.36-3.74 uIU/mL Coagulation Labs: Test 03/01/25 00:28 Range/Units Prothrombin Time 11.7 H 9.6-11.6 SEC Prothromb Time International Ratio 1.12 0.85-1.15 Activated Partial Thromboplast Time 47.3 H 26.3-35.5 SEC DIAGNOSTICS / RADIOLOGY RESULTS: [ ][place] [address] [address] IMAGING REPORT Signed PATIENT: MARGRET MATHIAS MR#: [id number] : 1965 SEX: M AGE: 60 LOCATION: 2CV ORDER 1512 STATUS: ADM IN REPORT#: [id number] SERVICE 0000 REASON: ANOOP CURRIE ORDERING PHYSICIAN: KATE WATT MD PROCEDURE: ECHO CMP - ECHO 2-D COMPLETE APPROVED REPORT EXAM: Two-dimensional and M-mode echocardiogram with Doppler and color Doppler. INDICATION ICD: Non ST-elevation RI I21.4, Acute coronary syndrome 2D Dimensions RVDd 4.7 cm LVEF(%) 64.9 (>50%) LVED Vol(simp.) 78.0 mL IVSd 1.0 (0.7-1.1cm) FS(%) 36 % LVES Vol(simp.) 42.0 mL LVDd 4.9 (3.8-5.6cm) LA (2D) 4.5 (1.6-4.0cm) LVEF(%, simp.) 46 % PWd 1.1 (0.7-1.1cm) Ao Root(2D) 4.0 (2.0-3.7cm) LA ESV INDEX (BP) 21.62 mL/m2 IVSs 1.8 cm LVOT diam 2.2 (1.8-2.4cm) LVDs 3.2 (2.5-4.0cm) IVC diam 2.3 cm PWs 2.0 cm Deformation Strain Apical 4 -13.2 % Apical 2 -10.4 % Apical 3 -6.6 % Global Strain -10.0 % M-Mode Dimensions EPSS 0.5 cm LA (MM) 4.6 (1.6-4.0cm) Ao Root(MM) 3.9 (2.0-3.7cm) Aortic Valve AoV Vmax 1.2 m/s Ao Peak GR 5.5 mmHg LVOT Vmax 1.0 m/s AoV VTI 0.2 m Ao Mean GR 3.3 mmHg LVOT VTI 0.13 m WHITNEY (VMAX) 3.19 cm2 WHITNEY (VTI) 3.2 cm2 Mitral Valve MV E Vmax 74.7 cm/s DECEL Time 169 ms MV A Vmax 50.2 cm/s P 1/2 T 47 ms E/A ratio 1.5 MVA (PHT) 4.7 cm2 TDI E/E' Medial 12.6 E/E' Lateral 7.5 Medial E' Peak V 5.91 cm/s Lateral E' Peak V 9.98 cm/s Pulmonary Valve PV Vmax 0.9 m/s PV Mean GR 1.9 mmHg PV Peak GR 3.1 mmHg Tricuspid Valve TR Vmax 1.6 m/s RAP (EST) 15 mmHg RVSP 25.3 mmHg TR Peak GR 10.3 mmHg Left Ventricle The left ventricle is normal size. GLS -10.0% Inferior septum posterior and inferior wall hypokinesis noted moderate There is normal left ventricular wall thickness. LVEF is 45-50%. No left ventricle thrombus noted on this study. Stage I diastolic dysfunction. Right Ventricle The right ventricle is moderately dilated. Right ventricular systolic function is severely reduced. Atria The left atrium size is normal. The right atrium size is normal. Aortic Valve Aortic valve is trileaflet and opens well. No aortic regurgitation is present. There is no aortic valvular stenosis. Mitral Valve The mitral valve is normal in structure. There is no mitral valve regurgitation noted. There is no mitral valve stenosis. Tricuspid Valve The tricuspid valve is normal in structure. There is trace of tricuspid valve regurgitation noted. Pulmonic Valve The pulmonary valve is normal in structure. There is no pulmonic valvular regurgitation. Great Vessels The aortic root is normal in size. IVC is dilated and collapses <50% with inspiration. Pericardium There is no pericardial effusion. Other Information Quality : Technically difficult study due to body habitus Conclusion LVEF is 45-50%. Stage I diastolic dysfunction. GLS -10.0% Inferior septum posterior and inferior wall hypokinesis noted moderate The aortic root is normal in size. There is no pericardial effusion. DICTATED BY: JULI TURK MD DATE: 03/01/25 0803 ELECTRONICALLY SIGNED BY: JULI TURK MD DATE: 03/01/25 0937 PLAN Continue heparin gtt follow cardiology recommendations continue cardiac monitoring continue asa, metoprolol, continue plavix, jardiance, Imdur, lisinopril monitor electrolytes and replace accordingly NEURO: Minimize central acting medications as possible. Fall Precautions. Well lighted room through the day and minimize interruptions through the night to prevent acute delirium. PULMONARY: Supplemental 02 as needed Titrate Fio2 to keep Spo2 > or = 90% DuoNebs and CPT as needed IS hourly while awake for pulmonary hygiene Out of bed to chair as tolerated VAP Bundle Vent/BIPAP Settings: [ ] Driving pressure: [ ] P Plat: [ ] Static C: [ ] Static R: [ ] P/F Ratio: [ ] CARDIOVASCULAR: Follow hemodynamics. Titrate vasopressor to keep MAP >65 or systolic blood pressure >95mmHg DIPS: heaprin LINES: PIV GI & NUTRITION: Continue nutritional support Aspirations precautions Prokinetic agents and laxatives as needed KIDNEYS & ELECTROLYTES: Strict monitoring of intake and output Daily weights Avoid nephrotoxic agents Monitor electrolytes and replace as needed Goal urine output of 30mL/hr or 0.5mL/kg/hr Urine output: [ ] Fluid Balance: [ ] ENDOCRINE: Maintain blood glucose between 100-180 at all times. Insulin sliding scale for blood glucose management INFECTIOUS DISEASE: Trend temperature. Luna-culture if febrile. Micro: [ ] Antibiotics: [ ] HEMATOLOGY & COAGULATION: Monitor H&H. Keep Hgb > 7 Transfuse 1 unit of PRBC for Hgb < 7 Transfuse 1 pack of platelets of platelets < 20, 000 Watch for any signs and symptoms of bleeding SKIN: Pressure ulcer prevention per facility protocol Rehab: PT/OT Prophylaxis: GI: [famotine ] DVT: [ heparin gtt] Code Status: Full Resuscitation Disposition: [ PCCU ] Other: Total patient care time exceeds 35 minutes excluding all procedures. Case was discussed and seen with my supervising physician. The above plan was formulated and agreed upon. ATTESTATION BY PHYSICIAN I reviewed the documentation, medical decision making, and treatment plan as noted by the mid-level provider above. I agree with the findings and plan of care. Clem Qiu MD, [facility] Mar 01, 2025 09:44
--- NOTE | 2025-03-01 10:45 | NUR ---
DCP:HOME Pt currently lives at home with his Talisha Ocampo [phone]. Pt does not have any DME, home health, or provider services. As per , pt is able to complete ADLs independently. PCP is Dr. Wayne Fry in [place], [place]. At [place] pt will want to go home and family can assist with transportation. Addendum: 03/01/25 at 1047 by DANIELLE HUBER SS Amended: Links added.
[2025-03-01 12:28] LABS: CREATININE 1.1 mg/dL (0.5-1.3); GLOMERULAR FILTR. RATE CALC 77.0 mL/min (>90); GLUCOSE,RANDOM 190.0 mg/dL (70-105); SODIUM SERUM 136.0 mmol/L (136-145); UREA NITROGEN, BLOOD 38.0 mg/dL (7-18)
[2025-03-01 12:32] LABS: ASPARTATE AMINOTRANSFERASE 70.0 U/L (10-37); TOTAL PROTEIN, SERUM 6.7 g/dL (6.0-8.3)
--- NOTE | 2025-03-01 12:47 | HMCIMG ---
EXAM: CR Chest, 1 View. CLINICAL HISTORY: assess for any significant infiltrates COMPARISON: None provided. FINDINGS: LUNGS: The lungs show no infiltrate or other acute finding. PLEURAL SPACES: No evidence of pleural effusion or pneumothorax. MEDIASTINUM: Cardiac size and mediastinal contours within normal limits. BONES: No acute osseous abnormality. Elevated right hemidiaphragm noted. IMPRESSION: 1.No acute cardiopulmonary pathology is evident. 2. Elevated right hemidiaphragm noted. /[place]
[2025-03-01] MEDS: PoTASSium chloRIDE 20MEQ ER 20 MEQ ERTAB PO PRN (15:14)
--- NOTE | 2025-03-01 16:21 | PN ---
[facility] PROGRESS NOTE Date of Service: Mar 01, 2025 Time of Service: 16:16 SUBJECTIVE: 60-year-old male with history of hypertension, hyperlipidemia, type 2 diabetes mellitus, previous history of CT in 2016 status post PCI with stent placement, recent history of CT in [place] on 02/19/2025 who presented as a transfer from [facility] for management of NSTEMI. Patient states that works as a cdl team truck driver and was in [place] recently. He was hospitalized in [place] on 02/19/2025 after he presented with chest pain. He underwent coronary angiogram and was told that he had blockages which could not be opened up. He return back to the [facility] on Tuesday and close to 12:30 a.m. today, he started having significant [id number] intensity chest pain. Lasted for several hours and prompted him to come to the ER for further evaluation in [facility]. On presentation to [facility], high [place] [id number]. Patient was transferred to [facility] for further evaluation with cardiac catheterization/coronary angiogram. Patient was seen at bedside and states that chest pain is currently 4-5/10 in intensity. He has been taking all medications that were prescribed in [place]. Denies any Shortness or breath, syncope or dizziness. 03/01/2025: Patient was seen at the bedside in the room 211. Cardiology consultation was done, and they mentioned that the patient's C-reactive protein was significantly elevated and the patient's EKG does seem to be consistent with pericarditis. So ordered echocardiography to check for the presence of any pericardial effusions. Patient is on aspirin therapy. Coronary angiogram revealed a flush occlusion of ostial right coronary artery with patent left coronary system with aneurysmal changes noted and mid LAD myocardial bridge. In regards to the patient right coronary artery, he has made significant collateral flow from the left coronary system and they are not inclined to make a 2nd or 3rd attempt in total to try and revascularize the vessel percutaneously. Cardiology suggested that the patient can be moved out of the ICU setting. REVIEW OF SYSTEMS CONSTITUTIONAL: Denies fevers, chills, or night sweats. No unintentional weight loss reported. NEUROLOGICAL: Denies headache, amaurosis fugax, motor weakness, sensory deficit, vertigo/spinning sensation, gait abnormalities, or tremors. ENT: No hearing loss, otalgia, otorrhea, rhinitis, rhinorrhea, hoarseness, or sore throat. CARDIOVASCULAR: moderate to severe chest pain that started earlier today PULMONARY: Denies any shortness of breath, cough, phlegm/sputum, hemoptysis, pleuritic chest pain. SLEEP: Denies morning headaches, daytime somnolence or napping. Denies difficulty falling asleep, staying asleep, waking from sleep. Denies knowledge of snoring. GASTROINTESTINAL: Denies any type of dysphagia to either liquids or solids. Denies nausea, vomiting, pyrosis, early satiety, abdominal pain, diarrhea, constipation, or changes in stool consistency or caliber. Denies coffee-ground emesis, hematemesis, hematochezia, or melanotic stools. GENITOURINARY: Denies frequency, urgency, nocturia, hematuria or incontinence (Storage/Irritative symptoms.) Low urinary stream, straining to void, urinary intermittency or hesitancy, splitting of the voiding stream, terminal dribbling. ENDOCRINOLOGIC: Denies polyuria, polydipsia, polyphagia or heat/cold intolerances. HEMATOLOGIC: Denies thrombophilia/previous clots, or coagulopathy/bleeding disorders. ONCOLOGIC: Denies personal history of malignancy. DERMATOLOGIC: Denies rashes or pruritus. PSYCHIATRIC: Denies any suicidal or homicidal ideation. Denies hallucinations. PHYSICAL EXAM GENERAL APPEARANCE: The patient is awake, alert, and oriented, in no acute cardiopulmonary distress. NEUROLOGICAL: Cranial nerves II-XII grossly intact. Motor is 5/5 in bilateral upper and lower extremities proximal to distal. No sensory deficits. HEENT: Face is symmetric. Pupils are equal and reactive. Extraocular movements are intact. NECK: Supple. No JVD. No thyromegaly. No submental, submandibular, pre-/postauricular, occipital or supraclavicular lymphadenopathy. CHEST: Normal chest expansion. No Telemetry. LUNGS: Absence of any rales, rhonchi or any wheezing. CARDIOVASCULAR: Regular. S1 and S2 normal. No appreciable rubs, murmurs or gallops. ABDOMEN: Soft, nontender, and nondistended. There is no rebound, voluntary guarding, or rigidity. : Deferred. No Kirkpatrick. EXTREMITIES: Non-edematous and not cyanotic. No clubbing. Good capillary refill. SKIN: No skin breakdown. Vital Signs (last 8hr) Date Time Temp Pulse Resp B/P (MAP) Pulse Ox O2 Delivery O2 Flow Rate FiO2 03/01/25 12:39 72 14 107/58 (74) 93 03/01/25 12:31 72 14 93 03/01/25 12:16 74 14 94 03/01/25 12:01 73 14 94 03/01/25 12:00 94 Room Air* 0 21 03/01/25 11:46 79 14 95 03/01/25 11:39 74 28 101/66 (78) 95 03/01/25 11:31 74 28 96 03/01/25 11:16 73 14 95 03/01/25 11:01 70 12 97 03/01/25 10:46 61 13 95 03/01/25 10:39 63 13 93/60 (71) 90 03/01/25 10:31 61 13 95 03/01/25 10:30 60 16 94 Room Air 03/01/25 10:16 67 13 93 03/01/25 10:15 70 16 93 Room Air 03/01/25 10:01 64 13 95 03/01/25 10:00 64 16 94 Room Air 03/01/25 09:46 69 13 95 03/01/25 09:45 68 16 95 Room Air 03/01/25 09:39 72 16 92/50 93 Room Air 03/01/25 09:39 72 13 92/50 (64) 93 03/01/25 09:31 71 13 94 03/01/25 09:30 68 16 94 Room Air 03/01/25 09:16 67 13 91 03/01/25 09:15 68 16 94 Room Air 03/01/25 09:01 83 12 94 03/01/25 09:00 73 16 94 21 03/01/25 09:00 73 16 94 Room Air 03/01/25 08:45 70 16 93 Room Air 03/01/25 08:45 70 16 93 21 03/01/25 08:39 80 16 111/56 95 Room Air 03/01/25 08:39 80 16 111/56 (74) 95 21 03/01/25 08:30 71 18 94 Room Air 03/01/25 08:30 71 18 94 21 LABS: Laboratory: Test 03/01/25 12:07 03/01/25 06:09 03/01/25 03:55 03/01/25 00:28 Range/Units Sodium Level 136 136-145 mmol/L Potassium Level 3.6 3.5-5.1 mmol/L Chloride Level 103 101-111 mmol/L Carbon Dioxide Level 20 L 21-32 mmol/L Blood Urea Nitrogen 38 H 7-18 mg/dL Creatinine 1.1 0.5-1.3 mg/dL Glomerular Filtration Rate Calc 77 >90 mL/min Random Glucose 190 H 70-105 mg/dL Total Calcium 8.6 8.5-10.1 mg/dL Magnesium Level 2.70 H 1.80-2.40 mg/dL Total Bilirubin 1.0 0.2-1.0 mg/dL Aspartate Amino Transf (AST/SGOT) 70 H 10-37 U/L Alanine Aminotransferase (ALT/SGPT) 46 12-78 U/L Alkaline Phosphatase 139 H 50-136 U/L Total Protein 6.7 6.0-8.3 g/dL Albumin 3.0 L 3.5-5.0 g/dL Whole Blood Glucose 143 H 70-110 MG/DL White Blood Count 11.4 H 4.8-10.8 K/uL Red Blood Count 4.47 L 4.50-6.20 MIL/uL Hemoglobin 13.2 L 14.0-18.0 g/dL Hematocrit 38.8 L 42-54 % Mean Corpuscular Volume 86.8 79-99 fL Mean Corpuscular Hemoglobin 29.5 27.0-33.0 pg Mean Corpuscular Hemoglobin Concent 34.0 32.0-36.0 g/dL Red Cell Distribution Width 13.1 11.0-15.5 % Platelet Count 221 130-400 K/uL Mean Platelet Volume 10.1 7.5-10.5 fL Immature Granulocyte % (Auto) 0.7 0-1 % Neutrophils (%) (Auto) 69.6 40.0-77.0 % Lymphocytes (%) (Auto) 17.4 L 21.0-51.0 % Monocytes (%) (Auto) 11.8 3.0-13.0 % Eosinophils (%) (Auto) 0.1 0.0-8.0 % Basophils (%) (Auto) 0.4 0.0-5.0 % Neutrophils # (Auto) 7.9 H 1.8-7.7 K/uL Lymphocytes # (Auto) 2.0 1.0-4.8 K/uL Monocytes # (Auto) 1.3 H 0.1-1.0 K/uL Eosinophils # (Auto) 0.01 0.00-0.70 K/uL Basophils # (Auto) 0.04 0.00-0.20 K/uL Absolute Immature Granulocyte (auto 0.08 0-1 K/uL Nucleated Red Blood Cells 0.0 0.0-0.19 % Prothrombin Time 11.7 H 9.6-11.6 SEC Prothromb Time International Ratio 1.12 0.85-1.15 Activated Partial Thromboplast Time 47.3 H 26.3-35.5 SEC Test 02/28/25 15:07 Range/Units Erythrocyte Sedimentation Rate 49 H 0-20 MM/HR Hemoglobin A1c 10.0 H 4.0-6.0 % Estimated Average Glucose (eAG) 240 H 70-126 mg/dL Lactate Dehydrogenase 608 H 81-234 U/L Total Creatine Kinase 635 *H 21-232 U/L Troponin I High Sensitivity 60096.6 *H 4-75 ng/L C-Reactive Protein, Quantitative 182.10 H 0.5-3.0 mg/L Triglycerides Level 110 30-200 mg/dL Cholesterol Level 158 <200 mg/dL LDL Cholesterol 97 0-99 mg/dL HDL Cholesterol 41 29-71 mg/dL Procalcitonin 0.16 0.05-0.5 ng/mL Thyroid Stimulating Hormone (TSH) 1.14 0.36-3.74 uIU/mL Current Medications Medications (Trade) Dose Ordered Sig/Patrick Route PRN Reason Start Time Stop Time Status Last Admin Dose Admin Amiodarone HCl (pacERONE 200MG) 200 mg DAILY PO 03/01/25 09:00 03/31/25 08:59 03/01/25 08:43 200 MG Aspirin (Aspirin 81mg Chew Tab) 81 mg DAILY PO 03/01/25 09:00 03/31/25 08:59 03/01/25 08:44 81 MG Atorvastatin Calcium (LIPItor 40MG) 40 mg HS PO 02/28/25 21:00 03/30/25 20:59 02/28/25 21:08 40 MG Clopidogrel Bisulfate (plaVIX 75MG) 75 mg DAILY PO 03/01/25 09:00 02/28/25 15:19 DC Clopidogrel Bisulfate (plaVIX 75MG) 75 mg DAILY PO 03/01/25 09:00 03/31/25 08:59 03/01/25 08:44 75 MG Empaglifozin (Jardiance 25mg) 25 mg DAILY PO 03/01/25 09:00 03/31/25 08:59 03/01/25 08:44 25 MG Famotidine (Pepcid 20mg Tab) 20 mg BID PO 02/28/25 21:00 03/30/25 20:59 03/01/25 08:48 20 MG Heparin Sodium/ Dextrose 250 ml @ 0 mls/hr PROTOCOL IV 02/28/25 18:30 03/30/25 18:29 02/28/25 18:40 10 MLS/HR Insulin Glargine (LANtus 100 UNITS/ML 10 ML VIAL) 10 units HS SQ 02/28/25 21:00 03/30/25 20:59 02/28/25 21:11 10 UNITS Insulin Human Regular (humuLIN R 100 UNIT/ML 3ML) INSULIN SLIDING SCAL... ACHS SQ 02/28/25 16:30 03/30/25 16:29 02/28/25 21:10 4 UNIT Isosorbide Mononitrate (Imdur 30mg Sr) 30 mg DAILY PO 03/01/25 09:00 03/31/25 08:59 03/01/25 08:44 30 MG Lisinopril (Prinivil 40mg) 40 mg DAILY PO 03/01/25 09:00 03/01/25 05:52 DC Lisinopril (Prinivil 40mg) 40 mg DAILY PO 03/01/25 09:00 03/31/25 08:59 03/01/25 08:43 40 MG Magnesium Sulfate 50 ml @ 0 mls/hr PROTOCOL IV 02/28/25 15:30 03/30/25 15:29 Metoprolol Tartrate (loprESSOR) 25 mg BID PO 03/01/25 09:00 03/31/25 08:59 03/01/25 08:51 25 MG Miscellaneous Medication (Ranolazine (Ranolazine ER)) 1 tab BID PO 02/28/25 21:00 02/28/25 16:01 DC Morphine Sulfate (morPHINE 2MG SYG) 2 mg Q6H PRN IVP SEVERE PAIN (7-10) 02/28/25 15:30 03/07/25 15:29 Nitroglycerin (Nitrostat) 0.4 mg AD PRN SL CHEST PAIN 02/28/25 15:30 03/30/25 15:29 Nitroglycerin (Nitrostat) 0.4 mg AD PRN SL CHEST PAIN 02/28/25 16:30 03/30/25 16:29 Potassium Chloride 100 ml @ 100 mls/hr AD PRN IV POTASSIUM PROTOCOL 02/28/25 15:30 03/30/25 15:29 Potassium Chloride (K-Dur/Klor-Con 20meq) 20 meq AD PRN PO POTASSIUM PROTOCOL 02/28/25 15:30 03/30/25 15:29 03/01/25 15:14 20 MEQ Potassium Chloride (KCl 10% Elixir 20meq/15ml) 20 meq AD PRN PO POTASSIUM PROTOCOL 02/28/25 15:30 03/30/25 15:29 Ranolazine (Ranexa) 500 mg BID PO 02/28/25 21:00 03/30/25 20:59 03/01/25 08:48 500 MG Sodium Chloride 1,000 ml @ 100 mls/hr Q10H IV 02/28/25 16:30 02/28/25 22:29 DC 02/28/25 18:24 100 MLS/HR DIAGNOSTICS / RADIOLOGY: [place] [address] IMAGING REPORT Signed PATIENT: MARGRET MATHIAS MR#: [id number] : 1965 SEX: M AGE: 60 LOCATION: 2CV ORDER [id number] STATUS: ADM IN REPORT#: [id number] SERVICE 0000 REASON: ANOOP CURRIE ORDERING PHYSICIAN: KATE WATT MD PROCEDURE: ECHO CMP - ECHO 2-D COMPLETE APPROVED REPORT EXAM: Two-dimensional and M-mode echocardiogram with Doppler and color Doppler. INDICATION ICD: Non ST-elevation CT I21.4, Acute coronary syndrome 2D Dimensions RVDd 4.7 cm LVEF(%) 64.9 (>50%) LVED Vol(simp.) 78.0 mL IVSd 1.0 (0.7-1.1cm) FS(%) 36 % LVES Vol(simp.) 42.0 mL LVDd 4.9 (3.8-5.6cm) LA (2D) 4.5 (1.6-4.0cm) LVEF(%, simp.) 46 % PWd 1.1 (0.7-1.1cm) Ao Root(2D) 4.0 (2.0-3.7cm) LA ESV INDEX (BP) 21.62 mL/m2 IVSs 1.8 cm LVOT diam 2.2 (1.8-2.4cm) LVDs 3.2 (2.5-4.0cm) IVC diam 2.3 cm PWs 2.0 cm Deformation Strain Apical 4 -13.2 % Apical 2 -10.4 % Apical 3 -6.6 % Global Strain -10.0 % M-Mode Dimensions EPSS 0.5 cm LA (MM) 4.6 (1.6-4.0cm) Ao Root(MM) 3.9 (2.0-3.7cm) Aortic Valve AoV Vmax 1.2 m/s Ao Peak GR 5.5 mmHg LVOT Vmax 1.0 m/s AoV VTI 0.2 m Ao Mean GR 3.3 mmHg LVOT VTI 0.13 m WHITNEY (VMAX) 3.19 cm2 WHITNEY (VTI) 3.2 cm2 Mitral Valve MV E Vmax 74.7 cm/s DECEL Time 169 ms MV A Vmax 50.2 cm/s P 1/2 T 47 ms E/A ratio 1.5 MVA (PHT) 4.7 cm2 TDI E/E' Medial 12.6 E/E' Lateral 7.5 Medial E' Peak V 5.91 cm/s Lateral E' Peak V 9.98 cm/s Pulmonary Valve PV Vmax 0.9 m/s PV Mean GR 1.9 mmHg PV Peak GR 3.1 mmHg Tricuspid Valve TR Vmax 1.6 m/s RAP (EST) 15 mmHg RVSP 25.3 mmHg TR Peak GR 10.3 mmHg Left Ventricle The left ventricle is normal size. GLS -10.0% Inferior septum posterior and inferior wall hypokinesis noted moderate There is normal left ventricular wall thickness. LVEF is 45-50%. No left ventricle thrombus noted on this study. Stage I diastolic dysfunction. Right Ventricle The right ventricle is moderately dilated. Right ventricular systolic function is severely reduced. Atria The left atrium size is normal. The right atrium size is normal. Aortic Valve Aortic valve is trileaflet and opens well. No aortic regurgitation is present. There is no aortic valvular stenosis. Mitral Valve The mitral valve is normal in structure. There is no mitral valve regurgitation noted. There is no mitral valve stenosis. Tricuspid Valve The tricuspid valve is normal in structure. There is trace of tricuspid valve regurgitation noted. Pulmonic Valve The pulmonary valve is normal in structure. There is no pulmonic valvular regurgitation. Great Vessels The aortic root is normal in size. IVC is dilated and collapses <50% with inspiration. Pericardium There is no pericardial effusion. Other Information Quality : Technically difficult study due to body habitus Conclusion LVEF is 45-50%. Stage I diastolic dysfunction. GLS -10.0% Inferior septum posterior and inferior wall hypokinesis noted moderate The aortic root is normal in size. There is no pericardial effusion. DICTATED BY: JULI QUIROGA MD DATE: 03/01/25 0803 ELECTRONICALLY SIGNED BY: JULI QUIROGA MD DATE: 03/01/25 0937 ASSESSMENT: Non ST-elevation CT/ACS, POA Recent history of CT in 02/19/2025 in [place], POA Remote history of CT in 2016 status post PCI in [facility] Obesity, POA Tobacco use disorder, POA Hypertension, POA * Hyperlipidemia, POA Type 2 diabetes mellitus, uncontrolled, POA Leukocytosis, POA- PLAN: Non ST-elevation CT/ACS, POA Recent history of CT in 02/19/2025 in [place], POA Remote history of CT in 2016 status post PCI in [place], [facility] * Patient admitted to CCU * Patient kept on NPO for cardiac catheterization/angiogram later today for management of NSTEMI * Continuing with dual antiplatelet therapy with aspirin and Plavix * Patient on heparin drip * Patient to continue with guideline directed medical therapy with lisinopril 40 mg daily, metoprolol tartrate 25 mg twice daily, Jardiance 25 mg daily * 2D echocardiogram showed left ventricular ejection fraction of 45-50%, stage I diastolic dysfunction, inferior septum posterior and inferior wall hypokinesis and no pericardial effusion * Patient is on amiodarone 200 mg daily as outpatient which will be continued, patient is unsure if he has any issues with cardiac arrhythmias previously * Patient reports having issues with symptoms of sleep apnea, we will have pulmonology follow up with this patient, patient will benefit from sleep study as outpatient * We will maintain potassium greater than four and magnesium greater than two * Continuing patient on basal insulin with Lantus 10 units tonight, we will keep patient on sliding scale insulin a.c. and HS * Obesity, POA * Patients BMI 33.3 * Educate regarding exercise and diet * Tobacco use disorder, POA * Educate patient regarding the smoking cessation * Htn * Patient is on lisinopril * Type 2 diabetes mellitus, uncontrolled, POA * He is on empagliflozin * Insulin glargine Leukocytosis * Resolved ARJUN Gu MD Mar 01, 2025 16:21
--- NOTE | 2025-03-01 16:33 | NUR ---
RECEIVED REPORT FROM DANIELLE ALDANA, PATIENT ON HEPARIN GTT @ 10 UNITS/KG/HR. PPT DUE AT MIDNIGHT. PATIENT IN 228 NOW. BED IN LOW POSITION AND CALL LIGHT WITHIN REACH. WILL CONTINUE CARE FROM THIS POINT. PATIENT PLACED ON TELE MONITORING SINUS RHYTHM 78.
--- NOTE | 2025-03-01 18:36 | EKG ---
[facility] Test Date: 2025-02-28 Test Time: 14:31:24 Pat Name: MARGRET MATHIAS Department: [facility] Room: 228 1 Gender: M [employer] Agent: [id number] : 1965 Requested By: KATE WATT Order Number: [id number] Reading MD: Cesar Davis Measurements Intervals [place] Rate: 77 P: 44 OR: 207 QRS: -32 QRSD: 81 T: 1 QT: 416 QTc: 470 Interpretive Statements Sinus rhythm Borderline prolonged OR interval Probable left atrial enlargement Left ventricular hypertrophy Inferior infarct, age indeterminate Anterior Q waves, possibly due to LVH Borderline ST elevation, lateral leads No previous ECG available for comparison Electronically Signed On 03-02-2025 15:12:04 CDT by Cesar Davis Please click the below link to view image of tracing.
[2025-03-02 00:35] VITALS: BP 119/76; PULSE 73; RESP 18; TEMP 98.5
[2025-03-02 04:36] VITALS: BP 121/78; PULSE 73; RESP 18; TEMP 98.7
[2025-03-02 05:23] LABS: NUCLEATED RED BLOOD CELLS 0.0 % (0.0-0.19); PLATELET COUNT (AUTO) 241.0 K/uL (130-400); RED BLOOD CELL COUNT(AUTO) 4.58 MIL/uL (4.50-6.20); RED CELL DISTRIBUTION WIDTH 13.1 % (11.0-15.5); WHITE BLOOD COUNT (AUTO) 9.5 K/uL (4.8-10.8)
[2025-03-02 05:42] LABS: ASPARTATE AMINOTRANSFERASE 67.0 U/L (10-37); CREATININE 0.9 mg/dL (0.5-1.3); GLOMERULAR FILTR. RATE CALC 98.0 mL/min (>90); GLUCOSE,RANDOM 129.0 mg/dL (70-105); SODIUM SERUM 138.0 mmol/L (136-145); TOTAL PROTEIN, SERUM 6.4 g/dL (6.0-8.3); UREA NITROGEN, BLOOD 26.0 mg/dL (7-18)
[2025-03-02 07:50] VITALS: BP 107/76; PULSE 73; RESP 18; TEMP 98.4
[2025-03-02 10:08] VITALS: O2SAT 96
[2025-03-02] MEDS: SODIUM BICARBONATE 650 MG TAB PO SCH (11:00)
[2025-03-02 11:28] LABS: ABG BASE EXCESS -4.2 mmol/L (-2.0-3.0); ABG HCO3 18.2 mmol/L (21.0-28.0); ABG OXYGEN SATURATION 96.0 % (94.0-98.0); ABG PCO2 27 mmHg (35-48); ABG PH 7.441 (7.350-7.450); DEVICE COMMENT LR RN; PO2, ARTERIAL BG 76.4 mmHg (83.0-108.0); TEMPERATURE, CELSIUS BG 37.0 CELSIUS (35.5-37.0); VENT MODE, BG RA (ROOM AIR)
[2025-03-02 11:29] VITALS: BP 100/65; PULSE 68; RESP 18; TEMP 98.1
--- NOTE | 2025-03-02 11:38 | PN ---
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 He underwent a cardiac catheterization via the right radial approach and was told they could not see the prior stents and they also were unable to deliver equipment to the occluded vessel. He was managed medically but was unable to merchandise pickup/receiving associate his medications and returned home on 02/24/2025. He actually established care with a remediation technician in [place], Dr. Manuel and was able to finally merchandise pickup/receiving associate his medications 02/28/2025. Later that day, he developed substernal chest discomfort without any associated dyspnea or diaphoresis as he previously had experienced. He presented initially to [facility] [place] [address]. He was transferred to [facility] for further cardiac care. He also had evidence of acute on chronic diastolic congestive heart failure on chest x-ray. A cardiac catheterization on 02/28/2025 demonstrated 100% occlusion of the proximal RCA, there was [id number] collaterals, there was aneurysmal proximal to mid LAD, there was a small diagonal 2 and a myocardial bridge of the mid to distal LAD. After further evaluation, Dr. Turk decided to continue with medical therapy. He has continued on IV heparin. He offers no complaints of orthopnea or PND. He underwent a 2D echocardiogram on 02/28/2025 demonstrating an LVEF of 45-50%, stage I diastolic dysfunction, and the inferoseptum, posterior and inferior wall were noted to have moderate hypokinesis. There was no pericardial effusion. Physical Examination: GENERAL: No acute distress. HEAD: Normal with no signs of head trauma. EYES: PERRLA, EOMI, conjunctiva and sclera normal. NECK: Supple without JVD. There is no tenderness, lymphadenopathy, or masses. No thyromegaly. Normal carotid upstrokes without bruits. LUNGS: There are diminished breath sounds and rales at the right base greater than left. HEART: Normal rate and rhythm. Normal S1 and S2 without murmurs, gallop or rub. VASC: Peripheral pulses +2 bilaterally. EXT: No clubbing, cyanosis or edema. Right groin is free of any bruising or hematoma. NEURO: Awake, alert, and oriented x3. No focal neurological deficits noted. Laboratory: Hematology Labs: Test 03/02/25 05:08 03/01/25 03:55 02/28/25 15:07 Range/Units White Blood Count 9.5 4.8-10.8 K/uL Red Blood Count 4.58 4.50-6.20 MIL/uL Hemoglobin 13.5 L 14.0-18.0 g/dL Hematocrit 39.7 L 42-54 % Mean Corpuscular Volume 86.7 79-99 fL Mean Corpuscular Hemoglobin 29.5 27.0-33.0 pg Mean Corpuscular Hemoglobin Concent 34.0 32.0-36.0 g/dL Red Cell Distribution Width 13.1 11.0-15.5 % Platelet Count 241 130-400 K/uL Mean Platelet Volume 10.2 7.5-10.5 fL Nucleated Red Blood Cells 0.0 0.0-0.19 % Immature Granulocyte % (Auto) 0.7 0-1 % Neutrophils (%) (Auto) 69.6 40.0-77.0 % Lymphocytes (%) (Auto) 17.4 L 21.0-51.0 % Monocytes (%) (Auto) 11.8 3.0-13.0 % Eosinophils (%) (Auto) 0.1 0.0-8.0 % Basophils (%) (Auto) 0.4 0.0-5.0 % Neutrophils # (Auto) 7.9 H 1.8-7.7 K/uL Lymphocytes # (Auto) 2.0 1.0-4.8 K/uL Monocytes # (Auto) 1.3 H 0.1-1.0 K/uL Eosinophils # (Auto) 0.01 0.00-0.70 K/uL Basophils # (Auto) 0.04 0.00-0.20 K/uL Absolute Immature Granulocyte (auto 0.08 0-1 K/uL Erythrocyte Sedimentation Rate 49 H 0-20 MM/HR Chemistry Labs: Test 03/02/25 05:43 03/02/25 05:08 03/01/25 12:07 02/28/25 15:07 Range/Units Whole Blood Glucose 152 H 70-110 MG/DL Sodium Level 138 136-145 mmol/L Potassium Level 3.6 3.5-5.1 mmol/L Chloride Level 107 101-111 mmol/L Carbon Dioxide Level 20 L 21-32 mmol/L Blood Urea Nitrogen 26 H 7-18 mg/dL Creatinine 0.9 0.5-1.3 mg/dL Glomerular Filtration Rate Calc 98 >90 mL/min Random Glucose 129 H 70-105 mg/dL Total Calcium 8.1 L 8.5-10.1 mg/dL Total Bilirubin 0.7 # 0.2-1.0 mg/dL Aspartate Amino Transf (AST/SGOT) 67 H 10-37 U/L Alanine Aminotransferase (ALT/SGPT) 58 # 12-78 U/L Alkaline Phosphatase 151 H 50-136 U/L Total Protein 6.4 6.0-8.3 g/dL Albumin 2.8 L 3.5-5.0 g/dL Magnesium Level 2.70 H 1.80-2.40 mg/dL Hemoglobin A1c 10.0 H 4.0-6.0 % Estimated Average Glucose (eAG) 240 H 70-126 mg/dL Lactate Dehydrogenase 608 H 81-234 U/L Total Creatine Kinase 635 *H 21-232 U/L Troponin I High Sensitivity 72187.6 *H 4-75 ng/L C-Reactive Protein, Quantitative 182.10 H 0.5-3.0 mg/L Triglycerides Level 110 30-200 mg/dL Cholesterol Level 158 <200 mg/dL LDL Cholesterol 97 0-99 mg/dL HDL Cholesterol 41 29-71 mg/dL Procalcitonin 0.16 0.05-0.5 ng/mL Thyroid Stimulating Hormone (TSH) 1.14 0.36-3.74 uIU/mL Coagulation Labs: Test 03/02/25 05:08 03/01/25 00:28 Range/Units Activated Partial Thromboplast Time 76.1 #H 26.3-35.5 SEC Prothrombin Time 11.7 H 9.6-11.6 SEC Prothromb Time International Ratio 1.12 0.85-1.15 Diagnostics / Radiology: 2D echocardiogram 02/28/2025: Conclusion LVEF is 45-50%. Stage I diastolic dysfunction. GLS -10.0% Inferior septum posterior and inferior wall hypokinesis noted moderate The aortic root is normal in size. There is no pericardial effusion. Impression and Plan: Coronary artery disease status post recent non ST segment elevation ME 02/19/2025 ([place], [place]), managed medically: Post infarct angina: Follow-up cardiac catheterization 02/28/2025 demonstrated 100% proximal RCA stenosis with [id number] collaterals, aneurysmal proximal to mid LAD and mid LAD myocardial bridge, to be managed medically Aneurysmal proximal and mid LAD, with plans for lifelong dual antiplatelet therapy: -transition metoprolol to metoprolol succinate ER 25 mg p.o. daily -continue ranolazine 500 mg p.o. b.i.d., aspirin 81 mg p.o. daily and clopidogrel 75 mg p.o. daily -continue isosorbide mononitrate ER 30 mg p.o. daily -discontinue heparin -up ad matthew and activity as tolerated -cleared for discharge home later today with follow-up at [facility] in [place] with Dr. Turk in one week Ischemic cardiomyopathy with an LVEF of 45-50 % by 2D echocardiogram 02/28/2025: Acute on chronic HFmrEF (45-50%): -furosemide 20 mg IV x1 then discharge home with spironolactone 25 mg p.o. daily -he had complained of dizziness and we will discontinue lisinopril and transition to ramipril 5 mg p.o. daily -continue Jardiance 25 mg p.o. daily -the patient has been on amiodarone 200 mg p.o. daily for unclear reasons and reports this may have been started in [place] as he does not recall being on this medication in the past -for now, he will continue amiodarone and monitor on telemetry for any arr hythmias. Consider a 2 week outpatient mobile software project engineer and discontinue amiodarone if no evidence of atrial fibrillation/arrhythmia Hypertension: -continue with plans as outlined above Hyperlipidemia with lipid panel on 02/28/2025 demonstrated a total cholesterol of 158, triglycerides 110, HDL 41 and LDL of 97: -continue atorvastatin 40 mg p.o. daily to target an LDL of 55 or less Tobacco abuse and ongoing tobacco use: -discussed efforts at smoking cessation Type 2 diabetes mellitus Disposition: -cleared for discharge home later today -follow up Dr. Carlin Turk in one week in [facility] PHYSICIAN ATTESTATION OF PHYSICIAN SECONDARY SPECIAL EDUCATION TEACHER DOCUMENTATION: I attest that I was physically present for the bhakta portions of the service and evaluated the patient with the Physician Business Services Intern, and I reviewed and discussed the case with the Physician Business Services Intern and made modifications to the Physician Business Services Intern's findings and plans of care as documented above DESTINI HSIEH Mar 02, 2025 11:38 CHLOE SUÁREZ MD Mar 02, 2025 12:24
[2025-03-02] MEDS ORDERED: METO-408 PO (12:28)
[2025-03-02] MEDS ORDERED: SPIR25TA6 PO (12:28)
[2025-03-02] MEDS ORDERED: ASPI-1005 PO (12:28)
[2025-03-02] MEDS ORDERED: RAMI5CAP72 PO (12:28)
[2025-03-02] MEDS ORDERED: ATOR40TA69 PO (12:28)
[2025-03-02] MEDS ORDERED: CLOP-31 PO (12:28)
[2025-03-02 15:43] VITALS: BP 113/73; PULSE 73; RESP 18; TEMP 98.5
--- NOTE | 2025-03-02 17:17 | PN ---
[facility] PROGRESS NOTE Date of Service: Mar 02, 2025 Time of Service: 17:10 SUBJECTIVE: 60-year-old male with history of hypertension, hyperlipidemia, type 2 diabetes mellitus, previous history of VA in 2016 status post PCI with stent placement, recent history of VA in [place] on 02/19/2025 who presented as a transfer from [facility] for management of NSTEMI. 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 He was hospitalized in [place] on 02/19/2025 after he presented with chest pain. He underwent coronary angiogram and was told that he had blockages which could not be opened up. He return back to [place] on Tuesday and close to 12:30 a.m. today, he started having significant [id number]-[id number] intensity chest pain. Lasted for several hours and prompted him to come to the ER for further evaluation in [facility]. On presentation to [facility], high sensitivity [place] [id number]. Patient was transferred to [facility] for further evaluation with cardiac catheterization/coronary angiogram. Patient was seen at bedside and states that chest pain is currently 4-5/10 in intensity. He has been taking all medications that were prescribed in [place]. Denies any Shortness or breath, syncope or dizziness. 03/01/2025: Patient was seen at the bedside in the room 211. Cardiology consultation was done, and they mentioned that the patient's C-reactive protein was significantly elevated and the patient's EKG does seem to be consistent with pericarditis. So ordered echocardiography to check for the presence of any pericardial effusions. Patient is on aspirin therapy. Coronary angiogram revealed a flush occlusion of ostial right coronary artery with patent left coronary system with aneurysmal changes noted and mid LAD myocardial bridge. In regards to the patient right coronary artery, he has made significant collateral flow from the left coronary system and they are not inclined to make a 2nd or 3rd attempt in total to try and revascularize the vessel percutaneously. Cardiology suggested that the patient can be moved out of the ICU setting. 03/02/2025: Patient was seen and evaluated at the bedside in room 228. Cardiology suggested transition metoprolol to metoprolol mg per oral daily. Continued analogy unfounded mg per oral b.i.d., [id number] mg per oral daily and [id number] mg per oral daily discontinue heparin. The patient is cleared for discharge home later today with follow up at [facility] in vessel echo with Dr. Turk in 1 week. For the hyperlipidemia continue atorvastatin 40 mg per oral daily to target an LDL of 55 or less. REVIEW OF SYSTEMS CONSTITUTIONAL: Denies fevers, chills, or night sweats. No unintentional weight loss reported. NEUROLOGICAL: Denies headache, amaurosis fugax, motor weakness, sensory deficit, vertigo/spinning sensation, gait abnormalities, or tremors. ENT: No hearing loss, otalgia, otorrhea, rhinitis, rhinorrhea, hoarseness, or sore throat. CARDIOVASCULAR: moderate to severe chest pain that started earlier today PULMONARY: Denies any shortness of breath, cough, phlegm/sputum, hemoptysis, pleuritic chest pain. SLEEP: Denies morning headaches, daytime somnolence or napping. Denies difficulty falling asleep, staying asleep, waking from sleep. Denies knowledge of snoring. GASTROINTESTINAL: Denies any type of dysphagia to either liquids or solids. Denies nausea, vomiting, pyrosis, early satiety, abdominal pain, diarrhea, constipation, or changes in stool consistency or caliber. Denies coffee-ground emesis, hematemesis, hematochezia, or melanotic stools. GENITOURINARY: Denies frequency, urgency, nocturia, hematuria or incontinence (Storage/Irritative symptoms.) Low urinary stream, straining to void, urinary intermittency or hesitancy, splitting of the voiding stream, terminal dribbling. ENDOCRINOLOGIC: Denies polyuria, polydipsia, polyphagia or heat/cold intolerances. HEMATOLOGIC: Denies thrombophilia/previous clots, or coagulopathy/bleeding disorders. ONCOLOGIC: Denies personal history of malignancy. DERMATOLOGIC: Denies rashes or pruritus. PSYCHIATRIC: Denies any suicidal or homicidal ideation. Denies hallucinations. PHYSICAL EXAM GENERAL APPEARANCE: The patient is awake, alert, and oriented, in no acute cardiopulmonary distress. NEUROLOGICAL: Cranial nerves II-XII grossly intact. Motor is 5/5 in bilateral upper and lower extremities proximal to distal. No sensory deficits. HEENT: Face is symmetric. Pupils are equal and reactive. Extraocular movements are intact. NECK: Supple. No JVD. No thyromegaly. No submental, submandibular, pre- /postauricular, occipital or supraclavicular lymphadenopathy. CHEST: Normal chest expansion. No Telemetry. LUNGS: Absence of any rales, rhonchi or any wheezing. CARDIOVASCULAR: Regular. S1 and S2 normal. No appreciable rubs, murmurs or gallops. ABDOMEN: Soft, nontender, and nondistended. There is no rebound, voluntary guarding, or rigidity. : Deferred. No Kirkpatrick. EXTREMITIES: Non-edematous and not cyanotic. No clubbing. Good capillary refill. SKIN: No skin breakdown. Vital Signs (last 8hr) Date Time Temp Pulse Resp B/P (MAP) Pulse Ox O2 Delivery O2 Flow Rate FiO2 03/02/25 15:43 98.4 73 18 113/73 95 Room Air 03/02/25 11:29 98.1 68 18 100/65 100 Room Air 03/02/25 10:08 96 Room Air* 0 21 LABS: Laboratory: Test 03/02/25 15:42 03/02/25 13:19 03/02/25 11:26 03/02/25 05:08 Range/Units Whole Blood Glucose 205 H 70-110 MG/DL Activated Partial Thromboplast Time 30.4 # 26.3-35.5 SEC Blood Gas Specimen Type Arterial Arterial Blood pH 7.441 7.350-7.450 Arterial Blood Partial Pressure CO2 27 L 35-48 mmHg Arterial Blood Partial Pressure O2 76.4 L 83.0-108.0 mmHg Arterial Blood HCO3 18.2 L 21.0-28.0 mmol/L Arterial Blood Oxygen Saturation 96.0 94.0-98.0 % Arterial Blood Base Excess -4.2 L -2.0-3.0 mmol/L Blood Gas Temperature 37.0 35.5-37.0 CELSIUS Blood Gas Vent Mode RA ROOM AIR FiO2 21.0 % Blood Gas Specimen Comment LR RN White Blood Count 9.5 4.8-10.8 K/uL Red Blood Count 4.58 4.50-6.20 MIL/uL Hemoglobin 13.5 L 14.0-18.0 g/dL Hematocrit 39.7 L 42-54 % Mean Corpuscular Volume 86.7 79-99 fL Mean Corpuscular Hemoglobin 29.5 27.0-33.0 pg Mean Corpuscular Hemoglobin Concent 34.0 32.0-36.0 g/dL Red Cell Distribution Width 13.1 11.0-15.5 % Platelet Count 241 130-400 K/uL Mean Platelet Volume 10.2 7.5-10.5 fL Nucleated Red Blood Cells 0.0 0.0-0.19 % Sodium Level 138 136-145 mmol/L Potassium Level 3.6 3.5-5.1 mmol/L Chloride Level 107 101-111 mmol/L Carbon Dioxide Level 20 L 21-32 mmol/L Blood Urea Nitrogen 26 H 7-18 mg/dL Creatinine 0.9 0.5-1.3 mg/dL Glomerular Filtration Rate Calc 98 >90 mL/min Random Glucose 129 H 70-105 mg/dL Total Calcium 8.1 L 8.5-10.1 mg/dL Total Bilirubin 0.7 # 0.2-1.0 mg/dL Aspartate Amino Transf (AST/SGOT) 67 H 10-37 U/L Alanine Aminotransferase (ALT/SGPT) 58 # 12-78 U/L Alkaline Phosphatase 151 H 50-136 U/L B-Type Natriuretic Peptide 497 H 0-100 pg/mL Total Protein 6.4 6.0-8.3 g/dL Albumin 2.8 L 3.5-5.0 g/dL Test 03/01/25 12:07 03/01/25 03:55 03/01/25 00:28 Range/Units Magnesium Level 2.70 H 1.80-2.40 mg/dL Immature Granulocyte % (Auto) 0.7 0-1 % Neutrophils (%) (Auto) 69.6 40.0-77.0 % Lymphocytes (%) (Auto) 17.4 L 21.0-51.0 % Monocytes (%) (Auto) 11.8 3.0-13.0 % Eosinophils (%) (Auto) 0.1 0.0-8.0 % Basophils (%) (Auto) 0.4 0.0-5.0 % Neutrophils # (Auto) 7.9 H 1.8-7.7 K/uL Lymphocytes # (Auto) 2.0 1.0-4.8 K/uL Monocytes # (Auto) 1.3 H 0.1-1.0 K/uL Eosinophils # (Auto) 0.01 0.00-0.70 K/uL Basophils # (Auto) 0.04 0.00-0.20 K/uL Absolute Immature Granulocyte (auto 0.08 0-1 K/uL Prothrombin Time 11.7 H 9.6-11.6 SEC Prothromb Time International Ratio 1.12 0.85-1.15 Current Medications Medications (Trade) Dose Ordered Sig/Patrick Route PRN Reason Start Time Stop Time Status Last Admin Dose Admin Amiodarone HCl (pacERONE 200MG) 200 mg DAILY PO 03/01/25 09:00 03/31/25 08:59 03/02/25 09:22 200 MG Aspirin (Aspirin 81mg Chew Tab) 81 mg DAILY PO 03/01/25 09:00 03/31/25 08:59 03/02/25 09:21 81 MG Atorvastatin Calcium (LIPItor 40MG) 40 mg HS PO 02/28/25 21:00 03/30/25 20:59 03/01/25 21:36 40 MG Clopidogrel Bisulfate (plaVIX 75MG) 75 mg DAILY PO 03/01/25 09:00 02/28/25 15:19 DC Clopidogrel Bisulfate (plaVIX 75MG) 75 mg DAILY PO 03/01/25 09:00 03/31/25 08:59 03/02/25 09:22 75 MG Empaglifozin (Jardiance 25mg) 25 mg DAILY PO 03/01/25 09:00 03/31/25 08:59 03/02/25 09:21 25 MG Famotidine (Pepcid 20mg Tab) 20 mg BID PO 02/28/25 21:00 03/30/25 20:59 03/02/25 09:21 20 MG Furosemide (LASix 20MG VIAL) 20 mg BID IV 03/02/25 12:00 03/02/25 12:25 DC 03/02/25 12:02 20 MG Heparin Sodium (Porcine) (HEParin 5,000 UNIT VIAL) *calculation based on ACTUAL B... AD PRN IV HEPARIN PROTOCOL 03/02/25 02:30 04/01/25 02:29 03/02/25 02:13 4,000 UNIT Heparin Sodium/ Dextrose 250 ml @ 0 mls/hr PROTOCOL IV 02/28/25 18:30 03/02/25 12:25 DC 03/01/25 21:03 10.7 MLS/HR Insulin Glargine (LANtus 100 UNITS/ML 10 ML VIAL) 10 units HS SQ 02/28/25 21:00 03/30/25 20:59 03/01/25 21:42 10 UNITS Insulin Human Regular (humuLIN R 100 UNIT/ML 3ML) INSULIN SLIDING SCAL... ACHS SQ 02/28/25 16:30 03/30/25 16:29 03/02/25 16:53 3 UNIT Isosorbide Mononitrate (Imdur 30mg Sr) 30 mg DAILY PO 03/01/25 09:00 03/31/25 08:59 03/02/25 09:24 30 MG Lisinopril (Prinivil 40mg) 40 mg DAILY PO 03/01/25 09:00 03/01/25 05:52 DC Lisinopril (Prinivil 40mg) 40 mg DAILY PO 03/01/25 09:00 03/02/25 11:37 DC 03/02/25 09:21 40 MG Magnesium Sulfate 50 ml @ 0 mls/hr PROTOCOL IV 02/28/25 15:30 03/30/25 15:29 Metoprolol Tartrate (loprESSOR) 25 mg BID PO 03/01/25 09:00 03/31/25 08:59 03/02/25 09:20 25 MG Miscellaneous Medication (Ranolazine (Ranolazine ER)) 1 tab BID PO 02/28/25 21:00 02/28/25 16:01 DC Morphine Sulfate (morPHINE 2MG SYG) 2 mg Q6H PRN IVP SEVERE PAIN (7-10) 02/28/25 15:30 03/07/25 15:29 Nitroglycerin (Nitrostat) 0.4 mg AD PRN SL CHEST PAIN 02/28/25 15:30 03/30/25 15:29 Nitroglycerin (Nitrostat) 0.4 mg AD PRN SL CHEST PAIN 02/28/25 16:30 03/02/25 07:39 DC Potassium Chloride 100 ml @ 100 mls/hr AD PRN IV POTASSIUM PROTOCOL 02/28/25 15:30 03/30/25 15:29 Potassium Chloride (K-Dur/Klor-Con 20meq) 20 meq AD PRN PO POTASSIUM PROTOCOL 02/28/25 15:30 03/30/25 15:29 03/02/25 12:02 20 MEQ Potassium Chloride (KCl 10% Elixir 20meq/15ml) 20 meq AD PRN PO POTASSIUM PROTOCOL 02/28/25 15:30 03/30/25 15:29 Ranolazine (Ranexa) 500 mg BID PO 02/28/25 21:00 03/30/25 20:59 03/02/25 09:21 500 MG Sacubitril/ Valsartan (Entresto 24 Mg-26 Mg Tablet) 1 each BID PO 03/03/25 21:00 03/02/25 12:25 DC Sodium Bicarbonate (Sodium Bicarbonate) 650 mg BID PO 03/02/25 11:00 03/02/25 11:37 DC Sodium Chloride 1,000 ml @ 100 mls/hr Q10H IV 02/28/25 16:30 02/28/25 22:29 DC 02/28/25 18:24 100 MLS/HR DIAGNOSTICS / RADIOLOGY: [ ] ASSESSMENT: Non ST-elevation VA/ACS, POA Recent history of VA in 02/19/2025 in [place], POA Remote history of VA in 2016 status post PCI in [place], [facility] Obesity, POA Tobacco use disorder, POA Hypertension, POA * Hyperlipidemia, POA Type 2 diabetes mellitus, uncontrolled, POA Leukocytosis, POA- PLAN: Non ST-elevation VA/ACS, POA Recent history of VA in 02/19/2025 in [place], POA Remote history of VA in 2016 status post PCI in [place], A * Patient admitted to CCU * Patient kept on NPO for cardiac catheterization/angiogram later today for management of NSTEMI * Continuing with dual antiplatelet therapy with aspirin and Plavix * Patient on heparin drip * Patient to continue with guideline directed medical therapy with lisinopril 40 mg daily, metoprolol tartrate 25 mg twice daily, Jardiance 25 mg daily * 2D echocardiogram showed left ventricular ejection fraction of 45-50%, stage I diastolic dysfunction, inferior septum posterior and inferior wall hypokinesis and no pericardial effusion * Patient is on amiodarone 200 mg daily as outpatient which will be continued, patient is unsure if he has any issues with cardiac arrhythmias previously * Patient reports having issues with symptoms of sleep apnea, we will have pulmonology follow up with this patient, patient will benefit from sleep study as outpatient * We will maintain potassium greater than four and magnesium greater than two * Continuing patient on basal insulin with Lantus 10 units tonight, we will keep patient on sliding scale insulin a.c. and HS * Obesity, POA * Patients BMI 33.3 * Educate regarding exercise and diet * Tobacco use disorder, POA * Educate patient regarding the smoking cessation * Htn * Patient is on lisinopril * Type 2 diabetes mellitus, uncontrolled, POA * He is on empagliflozin * Insulin glargine Leukocytosis * Resolved ARJUN ACHARYA MD Mar 02, 2025 17:17
--- NOTE | 2025-03-02 20:55 | DS ---
Discharge Summary Hospital Course Summary: A 60 year old male with history of htn, hyperlipidemia, and type 2 diabetes mellitus, who works as a garbage truck helper, was admitted following transfer from a local medical center for further. Management of the acute coronary syndrome the patient had recently been hospitalized in on February 19 after a presenting age with chest pain where coronary angiogram revealed a right coronary artery. Blockage that could not be opened after returning to the [facility], he developed, recurrent moderate to severe chest pain lasting several hours prompting evaluation, at a local facility where his troponin was found to be markedly elevated. He was subsequently transferred to the [facility] er for. Cardiac catheterization further management repeat coronary angiography confirmed the chronic total occlusion of the RCA with a significant collateral flow from the left coronary system. Cardiology determined that the further attempts at revascularization were not indicated given the well-developed collaterals and prior unsuccessful interventions. The patient remained hem odynamically stable throughout his stay, and no further ischemic symptoms were noted. He was transitioned out of the ICU and is being discharged in a stable condition on optimal, medical therapy with instructions for close outpatient follow up,, cardiac rehabilitation and continued management of his cardiovascular risk factors. Kitchen Food Server(s): [address] [address] Cardiac Consult Note CONSULT NOTE DATE OF SERVICE: REFERRING PROVIDER: JULI TURK MD REASON FOR CONSULT: Non ST segment elevation myocardial infarction HPI: 60-year-old avid smoker who had a prior history of myocardial infarction in 2016 in [facility] and when she received two stents to unknown vessel who was in [place] at a job as he is a garbage truck helper and states he experienced some significant chest discomfort went to the hospital was admitted had a coronary angiogram done through a right radial artery approach and was told they could no t see previous stents and they also were unable to deliver equipment to the occluded vessel. He states he was treated medically and no balloons and stents were utilized. The patient then went on to return home on Tuesday from [place] and he states he was unable to get any of the medications that they had prescribed to him and he actually went an established care with a ore fielder and [place] by the name of Dr. [facility] and was given medications and he states yesterday he started having significant chest discomfort that would not resolve. The patient went to [facility] and [place] [id number]. The patient had EKG changes consistent with ischemia. [facility] heart [facility] was notified and any artery ER transfer was established as patient was having ongoing symptoms of chest pain. The patient states prior to his event that took place on February 18 in [place] he has been symptom free from any chest pains discomfort or tightness. The patient states when he was dismissed he had not had any recurrent symptoms of chest pain until 1-1/2 days prior to admission on this hospitalization. The patient states that he was told in [place] that his heart was strong and indeed not week or compromised in ejection fraction ROS: No fever, headache, chest pain, abdominal pain, nausea, vomiting, or diarrhea. PMHX: Diabetes mellitus Prior NH with prior stent placement done in [facility] unknown breath Nicotine abuse smoking one pack per cigarettes daily Dyslipidemia [facility] CONSULTATION NOTE Date Patient Seen: Mar 01, 2025 Time of Visit: 09:44 Supervising Physician: Clem Qiu MD Reason for Consultation: [facility] Primary Care Physician: self referrals, Outpatient Specialists: [ ] Inpatient Consults: Dr Jasson Turk, Attending Physician Aleja De Souza MD PROBLEM LIST: Non ST-elevation NH/ACS, POA S/P LHC w/ Unsuccessful attempt at revascularization of chronically occluded right coronary artery Post infarct angina with possible associated pericarditis Acute on chronic HFpEF w/ ICM and EF of 45-50% poa Repeat coronary angiogram revealing a flush occlusion of ostial RCA with patent left coronary system with aneurysmal changes noted and a mid LAD myocardial bridge Hypertension, POA Hyperlipidemia, POA Type 2 diabetes mellitus, uncontrolled, POA Leukocytosis, POA- Recent history of NH in 02/19/2025 in [place], POA w/ no PCI Remote history of NH in 2016 status post PCI in [place], POA Obesity, POA Tobacco use disorder, POA HPI: This is a 60 yr old male with a past medical Hx of nicotine abuse, prior NH in 2016w/ PCI and 2 stent placement, recent NH in [place] 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 The patient went to [facility] on 02/28/25 due to continues with discomfort and chest pain, during workup high sensitive trop 17K, the patient also demonstrated ekg changes consistent with ischemia. He was sent to [facility] for evaluation of chest pain. He underwent LHC by Dr Turk with unsuccessful PCI of chronic occluded RCA. Pt was admitted to ICU by [facility] team and were consulted for CCM. On abasement pt awake alert and oriented x 3 with no distress. He is currently 0n heparin gtt and therapeutic. PAST MEDICAL HX: see above PAST SURGICAL HX: noncontributory SOCIAL HISTORY: No tobacco, ETOH, or illicit drug use Coded Allergies: No Known Drug Allergies (Unverified Allergy, Unknown, 02/28/25) REVIEW OF SYSTEMS: 12 point ROS reviewed with patient. Pertinent positives mentioned above. Otherwise negative. PHYSICAL EXAM: GENERAL: alert, weak, awake oriented x 3 HEENT: EOMI, Sclera non icteric, moist mucosa NECK: Supple, no JVD, trachea midline LUNGS: Diminished breath sounds bilaterally. No wheezes HEART: Regular rate and rhythm. Normal S1 and S2, without murmurs ABD: Abdomen soft, nontender. Bowel sounds present EXT: No clubbing cyanosis or edema NEURO: Alert and oriented to person, follows commands Vital Signs (last 8hr) Date Time Temp Pulse Resp B/P (MAP) Pulse Ox O2 Delivery O2 Flow Rate FiO2 03/01/25 09:00 73 16 94 21 03/01/25 08:45 70 16 93 21 03/01/25 08:39 80 16 111/56 (74) 95 21 03/01/25 08:30 71 18 94 21 03/01/25 08:15 75 16 95 21 03/01/25 08:00 76 18 94 21 03/01/25 08:00 98.8 03/01/25 07:45 71 13 94 21 03/01/25 07:41 68 14 119/58 (78) 93 21 03/01/25 07:30 70 19 95 21 03/01/25 07:15 68 19 94 21 03/01/25 07:00 71 14 95 21 03/01/25 06:45 72 14 95 21 03/01/25 06:00 69 18 113/52 96 Room Air 03/01/25 05:00 68 16 102/58 91 Room Air 03/01/25 04:00 94 Room Air* 0 21 03/01/25 04:00 98.2 68 17 94/54 96 Room Air 03/01/25 03:00 70 21 91/52 96 Room Air 03/01/25 02:00 71 14 93/53 95 Room Air LABS: Hematology Labs: Test 03/01/25 03:55 02/28/25 15:07 Range/Units White Blood Count 11.4 H 4.8-10.8 K/uL Red Blood Count 4.47 L 4.50-6.20 MIL/uL Hemoglobin 13.2 L 14.0-18.0 g/dL Hematocrit 38.8 L 42-54 % Mean Corpuscular Volume 86.8 79-99 fL Mean Corpuscular Hemoglobin 29.5 27.0-33.0 pg Mean Corpuscular Hemoglobin Concent 34.0 32.0-36.0 g/dL Red Cell Distribution Width 13.1 11.0-15.5 % Platelet Count 221 130-400 K/uL Mean Platelet Volume 10.1 7.5-10.5 fL Immature Granulocyte % (Auto) 0.7 0-1 % Neutrophils (%) (Auto) 69.6 40.0-77.0 % Lymphocytes (%) (Auto) 17.4 L 21.0-51.0 % Monocytes (%) (Auto) 11.8 3.0-13.0 % Eosinophils (%) (Auto) 0.1 0.0-8.0 % Basophils (%) (Auto) 0.4 0.0-5.0 % Neutrophils # (Auto) 7.9 H 1.8-7.7 K/uL Lymphocytes # (Auto) 2.0 1.0-4.8 K/uL Monocytes # (Auto) 1.3 H 0.1-1.0 K/uL Eosinophils # (Auto) 0.01 0.00-0.70 K/uL Basophils # (Auto) 0.04 0.00-0.20 K/uL Absolute Immature Granulocyte (auto 0.08 0-1 K/uL Nucleated Red Blood Cells 0.0 0.0-0.19 % Erythrocyte Sedimentation Rate 49 H 0-20 MM/HR Chemistry Labs: Test 03/01/25 06:09 03/01/25 03:55 02/28/25 15:07 Range/Units Whole Blood Glucose 143 H 70-110 MG/DL Sodium Level 136 136-145 mmol/L Potassium Level 3.7 3.5-5.1 mmol/L Chloride Level 103 101-111 mmol/L Carbon Dioxide Level 20 L 21-32 mmol/L Blood Urea Nitrogen 38 H 7-18 mg/dL Creatinine 1.0 0.5-1.3 mg/dL Glomerular Filtration Rate Calc 87 >90 mL/min Random Glucose 151 H 70-105 mg/dL Total Calcium 8.3 L 8.5-10.1 mg/dL Magnesium Level 2.60 H 1.80-2.40 mg/dL Total Bilirubin 1.1 H 0.2-1.0 mg/dL Aspartate Amino Transf (AST/SGOT) 73 H 10-37 U/L Alanine Aminotransferase (ALT/SGPT) 41 12-78 U/L Alkaline Phosphatase 121 50-136 U/L Total Protein 6.5 6.0-8.3 g/dL Albumin 3.0 L 3.5-5.0 g/dL Hemoglobin A1c 10.0 H 4.0-6.0 % Estimated Average Glucose (eAG) 240 H 70-126 mg/dL Lactate Dehydrogenase 608 H 81-234 U/L Total Creatine Kinase 635 *H 21-232 U/L Troponin I High Sensitivity 08166.6 *H 4-75 ng/L C-Reactive Protein, Quantitative 182.10 H 0.5-3.0 mg/L Triglycerides Level 110 30-200 mg/dL Cholesterol Level 158 <200 mg/dL LDL Cholesterol 97 0-99 mg/dL HDL Cholesterol 41 29-71 mg/dL Procalcitonin 0.16 0.05-0.5 ng/mL Thyroid Stimulating Hormone (TSH) 1.14 0.36-3.74 uIU/mL Coagulation Labs: Test 03/01/25 00:28 Range/Units Prothrombin Time 11.7 H 9.6-11.6 SEC Prothromb Time International Ratio 1.12 0.85-1.15 Activated Partial Thromboplast Time 47.3 H 26.3-35.5 SEC DIAGNOSTICS / RADIOLOGY RESULTS: [ ][place] [address] [address] IMAGING REPORT Signed PATIENT: MARGRET MATHIAS MR#: [id number] : 1965 SEX: M AGE: 60 LOCATION: 2C ORDER 1512 STATUS: ADM IN REPORT#: [id number] SERVICE 0000 REASON: ANOOP CURRIE ORDERING PHYSICIAN: KATE WATT MD PROCEDURE: ECHO CMP - ECHO 2-D COMPLETE APPROVED REPORT EXAM: Two-dimensional and M-mode echocardiogram with Doppler and color Doppler. INDICATION ICD: Non ST-elevation NH I21.4, Acute coronary syndrome 2D Dimensions RVDd 4.7 cm LVEF(%) 64.9 (>50%) LVED Vol(simp.) 78.0 mL IVSd 1.0 (0.7-1.1cm) FS(%) 36 % LVES Vol(simp.) 42.0 mL LVDd 4.9 (3.8-5.6cm) LA (2D) 4.5 (1.6-4.0cm) LVEF(%, simp.) 46 % PWd 1.1 (0.7-1.1cm) Ao Root(2D) 4.0 (2.0-3.7cm) LA ESV INDEX (BP) 21.62 mL/m2 IVSs 1.8 cm LVOT diam 2.2 (1.8-2.4cm) LVDs 3.2 (2.5-4.0cm) IVC diam 2.3 cm PWs 2.0 cm Deformation Strain Apical 4 -13.2 % Apical 2 -10.4 % Apical 3 -6.6 % Global Strain -10.0 % M-Mode Dimensions EPSS 0.5 cm LA (MM) 4.6 (1.6-4.0cm) Ao Root(MM) 3.9 (2.0-3.7cm) Aortic Valve AoV Vmax 1.2 m/s Ao Peak GR 5.5 mmHg LVOT Vmax 1.0 m/s AoV VTI 0.2 m Ao Mean GR 3.3 mmHg LVOT VTI 0.13 m WHITNEY (VMAX) 3.19 cm2 WHITNEY (VTI) 3.2 cm2 Mitral Valve MV E Vmax 74.7 cm/s DECEL Time 169 ms MV A Vmax 50.2 cm/s P 1/2 T 47 ms E/A ratio 1.5 MVA (PHT) 4.7 cm2 TDI E/E' Medial 12.6 E/E' Lateral 7.5 Medial E' Peak V 5.91 cm/s Lateral E' Peak V 9.98 cm/s Pulmonary Valve PV Vmax 0.9 m/s PV Mean GR 1.9 mmHg PV Peak GR 3.1 mmHg Tricuspid Valve TR Vmax 1.6 m/s RAP (EST) 15 mmHg RVSP 25.3 mmHg TR Peak GR 10.3 mmHg Left Ventricle The left ventricle is normal size. GLS -10.0% Inferior septum posterior and inferior wall hypokinesis noted moderate There is normal left ventricular wall thickness. LVEF is 45-50%. No left ventricle thrombus noted on this study. Stage I diastolic dysfunction. Right Ventricle The right ventricle is moderately dilated. Right ventricular systolic function is severely reduced. Atria The left atrium size is normal. The right atrium size is normal. Aortic Valve Aortic valve is trileaflet and opens well. No aortic regurgitation is present. There is no aortic valvular stenosis. Mitral Valve The mitral valve is normal in structure. There is no mitral valve regurgitation noted. There is no mitral valve stenosis. Tricuspid Valve The tricuspid valve is normal in structure. There is trace of tricuspid valve regurgitation noted. Pulmonic Valve The pulmonary valve is normal in structure. There is no pulmonic valvular regurgitation. Great Vessels The aortic root is normal in size. IVC is dilated and collapses <50% with inspiration. Pericardium There is no pericardial effusion. Other Information Quality : Technically difficult study due to body habitus Conclusion LVEF is 45-50%. Stage I diastolic dysfunction. GLS -10.0% Inferior septum posterior and inferior wall hypokinesis noted moderate The aortic root is normal in size. There is no pericardial effusion. DICTATED BY: JULI TURK MD DATE: 03/01/25 08 ELECTRONICALLY SIGNED BY: JULI TURK MD DATE: 03/01/2578 PLAN Continue heparin gtt follow cardiology recommendations continue cardiac monitoring continue asa, metoprolol, continue plavix, jardiance, Imdur, lisinopril monitor electrolytes and replace accordingly NEURO: Minimize central acting medications as possible. Fall Precautions. Well lighted room through the day and minimize interruptions through the night to prevent acute delirium. PULMONARY: Supplemental 02 as needed Titrate Fio2 to keep Spo2 > or = 90% DuoNebs and CPT as needed IS hourly while awake for pulmonary hygiene Out of bed to chair as tolerated VAP Bundle Vent/BIPAP Settings: [ ] Driving pressure: [ ] P Plat: [ ] Static C: [ ] Static R: [ ] P/F Ratio: [ ] CARDIOVASCULAR: Follow hemodynamics. Titrate vasopressor to keep MAP >65 or systolic blood pressure >95mmHg DIPS: heaprin LINES: PIV GI & NUTRITION: Continue nutritional support Aspirations precautions Prokinetic agents and laxatives as needed KIDNEYS & ELECTROLYTES: Strict monitoring of intake and output Daily weights Avoid nephrotoxic agents Monitor electrolytes and replace as needed Goal urine output of 30mL/hr or 0.5mL/kg/hr Urine output: [ ] Fluid Balance: [ ] ENDOCRINE: Maintain blood glucose between 100-180 at all times. Insulin sliding scale for blood glucose management INFECTIOUS DISEASE: Trend temperature. Luna-culture if febrile. Micro: [ ] Antibiotics: [ ] HEMATOLOGY & COAGULATION: Monitor H&H. Keep Hgb > 7 Transfuse 1 unit of PRBC for Hgb < 7 Transfuse 1 pack of platelets of platelets < 20, 000 Watch for any signs and symptoms of bleeding SKIN: Pressure ulcer prevention per facility protocol Rehab: PT/OT Prophylaxis: GI: [famotine ] DVT: [ heparin gtt] Code Status: Full Resuscitation Disposition: [ PCCU ] Other: Total patient care time exceeds 35 minutes excluding all procedures. Case was discussed and seen with my supervising physician. The above plan was formulated and agreed upon. ATTESTATION BY PHYSICIAN I reviewed the documentation, medical decision making, and treatment plan as noted by the mid-level provider above. I agree with the findings and plan of care. Clem Qiu MD, NELLY J AGACNP Mar 01, 2025 09:44 Electronically Signed by: JOSEPH JOLLY [id number] Electronically Co-Signed by: PSHX: Noncontributory FH: Noncontributory in this patient with known coronary atherosclerosis SOCIAL: customer service driver Smoker one pack per day recently reduced significantly PHYSICAL EXAMINATION: GENERAL: No acute distress. HEENT: Normocephalic, atraumatic. CARDIAC: Positive S1 and S2. No murmurs. LUNGS: Clear to auscultation bilaterally. ABDOMEN: Bowel sounds present, soft, nontender. EXTREMITIES: No edema bilaterally. NEUROLOGIC: Cranial nerves 2-12 grossly intact. PSYCHIATRIC: Calm. ASSESSMENT: Non ST segment elevation myocardial infarction Post infarct angina with prior NH in [place] February 18, 2025 PLAN: At this time we will proceed with coronary angiography. Risks and goals of procedure were discussed with the patient and he is willing to proceed. All questions has been answered. Further recommendations to follow up pending results of angiography. Postprocedure we will institute guideline directed medical therapy to include sodium glucose transport to inhibitor, beta blockade, TUAN inhibitor/ARB, dual antiplatelet therapy and high-dose statin. If patient indeed needs surgical revascularization would consider holding off on dual antiplatelet therapy and CT surgery consultation will be in order. Vital Signs 02/28/25 02/28/25 02/28/25 02/28/25 14:45 14:45 14:45 15:00 Temp 99.7 Pulse 75 82 72 Resp 20 20 20 B/P (MAP) 114/64 122/61 (81) 164/70 (101) Pulse Ox 95 95 96 96 O2 Delivery Nasal Cannula* Nasal Cannula O2 Flow Rate 2 2.0 FiO2 28 28 28 28 Laboratory Tests Test 02/28/25 15:07 White Blood Count 14.1 K/uL (4.8-10.8) Red Blood Count 5.00 MIL/uL (4.50-6.20) Hemoglobin 14.5 g/dL (14.0-18.0) Hematocrit 43.2 % (42-54) Mean Corpuscular Volume 86.4 fL (79-99) Mean Corpuscular Hemoglobin 29.0 pg (27.0-33.0) Mean Corpuscular Hemoglobin Concent 33.6 g/dL (32.0-36.0) Red Cell Distribution Width 13.1 % (11.0-15.5) Platelet Count 262 K/uL (130-400) Mean Platelet Volume 10.1 fL (7.5-10.5) Immature Granulocyte % (Auto) 0.7 % (0-1) Neutrophils (%) (Auto) 77.0 % (40.0-77.0) Lymphocytes (%) (Auto) 12.5 % (21.0-51.0) Monocytes (%) (Auto) 9.6 % (3.0-13.0) Eosinophils (%) (Auto) 0.0 % (0.0-8.0) Basophils (%) (Auto) 0.2 % (0.0-5.0) Neutrophils # (Auto) 10.9 K/uL (1.8-7.7) Lymphocytes # (Auto) 1.8 K/uL (1.0-4.8) Monocytes # (Auto) 1.4 K/uL (0.1-1.0) Eosinophils # (Auto) 0.00 K/uL (0.00-0.70) Basophils # (Auto) 0.03 K/uL (0.00-0.20) Absolute Immature Granulocyte (auto 0.10 K/uL (0-1) Nucleated Red Blood Cells 0.0 % (0.0-0.19) Erythrocyte Sedimentation Rate 49 MM/HR (0-20) Prothrombin Time 11.8 SEC (9.6-11.6) Prothromb Time International Ratio 1.13 (0.85-1.15) Activated Partial Thromboplast Time 51.2 SEC (26.3-35.5) Current Medications Medications Dose Ordered Sig/Patrick Route PRN Reason Start Time Stop Time Status Last Admin Lidocaine HCl 20 ml STK-MED ONCE .ROUTE 02/28/25 14:58 02/28/25 14:59 DC Iohexol 35,000 mg STK-MED ONCE IV 02/28/25 14:59 02/28/25 14:59 DC Nicardipine HCl 25 mg STK-MED ONCE IV 02/28/25 14:59 02/28/25 14:59 DC Heparin Sodium (Porcine) 10,000 unit STK-MED ONCE .ROUTE 02/28/25 14:59 02/28/25 14:59 DC Heparin Sodium/ Sodium Chloride 1,000 ml @ As Directed STK-MED ONCE IV 02/28/25 14:59 02/28/25 14:59 DC Nitroglycerin 50 mg STK-MED ONCE .ROUTE 02/28/25 14:59 02/28/25 14:59 DC Insulin Human Regular INSULIN SLIDING SCAL... ACHS SQ 02/28/25 16:30 03/30/25 16:29 Aspirin 81 mg DAILY PO 03/01/25 09:00 03/31/25 08:59 Famotidine 20 mg BID PO 02/28/25 21:00 03/30/25 20:59 Magnesium Sulfate 50 ml @ 0 mls/hr PROTOCOL IV 02/28/25 15:30 03/30/25 15:29 Fentanyl Citrate 100 mcg STK-MED ONCE .ROUTE 02/28/25 15:10 02/28/25 15:10 DC Midazolam HCl 2 mg STK-MED ONCE .ROUTE 02/28/25 15:10 02/28/25 15:10 DC Bivalirudin 250 mg STK-MED ONCE IV 02/28/25 15:10 02/28/25 15:10 DC Clopidogrel Bisulfate 75 mg DAILY PO 03/01/25 09:00 02/28/25 15:19 DC Amiodarone HCl 200 mg DAILY PO 03/01/25 09:00 03/31/25 08:59 Isosorbide Mononitrate 30 mg DAILY PO 03/01/25 09:00 03/31/25 08:59 Empaglifozin 25 mg DAILY PO 03/01/25 09:00 03/31/25 08:59 Clopidogrel Bisulfate 75 mg DAILY PO 03/01/25 09:00 03/31/25 08:59 Atorvastatin Calcium 40 mg HS PO 02/28/25 21:00 03/30/25 20:59 JULI TURK MD Feb 28, 2025 15:41 Electronically Signed by: JULI TURK MD02/28/25 154 Electronically Co-Signed by: Procedure(s): [address] [address] IMAGING REPORT Signed PATIENT: MARGRET MATHIAS MR#: [id number] : 1965 SEX: M AGE: 60 LOCATION: 2CV ORDER 1512 STATUS: ADM IN REPORT#: [id number] SERVICE 0000 REASON: KUSH ACS ORDERING PHYSICIAN: KATE WATT MD PROCEDURE: ECHO CMP - ECHO 2-D COMPLETE APPROVED REPORT EXAM: Two-dimensional and M-mode echocardiogram with Doppler and color Doppler. INDICATION ICD: Non ST-elevation NH I21.4, Acute coronary syndrome 2D Dimensions RVDd 4.7 cm LVEF(%) 64.9 (>50%) LVED Vol(simp.) 78.0 mL IVSd 1.0 (0.7-1.1cm) FS(%) 36 % LVES Vol(simp.) 42.0 mL LVDd 4.9 (3.8-5.6cm) LA (2D) 4.5 (1.6-4.0cm) LVEF(%, simp.) 46 % PWd 1.1 (0.7-1.1cm) Ao Root(2D) 4.0 (2.0-3.7cm) LA ESV INDEX (BP) 21 .62 mL/m2 IVSs 1.8 cm LVOT diam 2.2 (1.8-2.4cm) LVDs 3.2 (2.5-4.0cm) IVC diam 2.3 cm PWs 2.0 cm Deformation Strain Apical 4 -13.2 % Apical 2 -10.4 % Apical 3 -6.6 % Global Strain -10.0 % M-Mode Dimensions EPSS 0.5 cm LA (MM) 4.6 (1.6-4.0cm) Ao Root(MM) 3.9 (2.0-3.7cm) Aortic Valve AoV Vmax 1.2 m/s Ao Peak GR 5.5 mmHg LVOT Vmax 1.0 m/s AoV VTI 0.2 m Ao Mean GR 3.3 mmHg LVOT VTI 0.13 m WHITNEY (VMAX) 3.19 cm2 WHITNEY (VTI) 3.2 cm2 Mitral Valve MV E Vmax 74.7 cm/s DECEL Time 169 ms MV A Vmax 50.2 cm/s P 1/2 T 47 ms E/A ratio 1.5 MVA (PHT) 4.7 cm2 TDI E/E' Medial 12.6 E/E' Lateral 7.5 Medial E' Peak V 5.91 cm/s Lateral E' Peak V 9.98 cm/s Pulmonary Valve PV Vmax 0.9 m/s PV Mean GR 1.9 mmHg PV Peak GR 3.1 mmHg Tricuspid Valve TR Vmax 1.6 m/s RAP (EST) 15 mmHg RVSP 25.3 mmHg TR Peak GR 10.3 mmHg Left Ventricle The left ventricle is normal size. GLS -10.0% Inferior septum posterior and inferior wall hypokinesis noted moderate There is normal left ventricular wall thickness. LVEF is 45-50%. No left ventricle thrombus noted on this study. Stage I diastolic dysfunction. Right Ventricle The right ventricle is moderately dilated. Right ventricular systolic function is severely reduced. Atria The left atrium size is normal. The right atrium size is normal. Aortic Valve Aortic valve is trileaflet and opens well. No aortic regurgitation is present. There is no aortic valvular stenosis. Mitral Valve The mitral valve is normal in structure. There is no mitral valve regurgitation noted. There is no mitral valve stenosis. Tricuspid Valve The tricuspid valve is normal in structure. There is trace of tricuspid valve regurgitation noted. Pulmonic Valve The pulmonary valve is normal in structure. There is no pulmonic valvular regurgitation. Great Vessels The aortic root is normal in size. IVC is dilated and collapses <50% with inspiration. Pericardium There is no pericardial effusion. Other Information Quality : Technically difficult study due to body habitus Conclusion LVEF is 45-50%. Stage I diastolic dysfunction. GLS -10.0% Inferior septum posterior and inferior wall hypokinesis noted moderate The aortic root is normal in size. There is no pericardial effusion. DICTATED BY: JULI TURK MD DATE: 03/01/25 0803 ELECTRONICALLY SIGNED BY: JULI TURK MD DATE: 03/01/25 0937 Assessment/Plan: ASSESSMENT: Non ST-elevation NH/ACS, POA Recent history of NH in 02/19/2025 in [place], POA Remote history of NH in 2016 status post PCI in [place], POA Obesity, POA Tobacco use disorder, POA Hypertension, POA * Hyperlipidemia, POA Type 2 diabetes mellitus, uncontrolled, POA Leukocytosis, POA- PLAN: Medications * Take all medications exactly as directed * * Include antiplatelet agents statins beta-blockers Activity * Gradually increase activity * Avoid heavy lifting Follow-up * Follow up with ore fielder within 1 week * Follow up with PCP within 1 week * Seek immediate medical attention if he experienced chest pain shortness of breath palpitations and fainting * No smoking * Limit alcohol intake Discharge Instructions: Medications * Take all medications exactly as directed * * Include antiplatelet agents statins beta-blockers Activity * Gradually increase activity * Avoid heavy lifting Follow-up * Follow up with ore fielder within 1 week * Follow up with PCP within 1 week * Seek immediate medical attention if he experienced chest pain shortness of breath palpitations and fainting * No smoking * Limit alcohol intake Home Medications: Active Scripts Metoprolol Succinate (Metoprolol Succinate) 25 Mg Tab.er.24h, 25 MG PO DAILY, #90 TAB 3 Refills Prov:CHLOE SUÁREZ MD 03/02/25 Ramipril (Ramipril) 5 Mg Capsule, 1 CAP PO DAILY for 30 Days, #90 CAP 0 Refills Prov:CHLOE SUÁREZ MD 03/02/25 Spironolactone (Spironolactone) 25 Mg Tablet, 1 TAB PO DAILY for 30 Days, #90 TAB 1 Refill Prov:CHLOE SUÁREZ MD 03/02/25 Clopidogrel Bisulfate (Plavix) 75 Mg Tablet, 75 MG PO DAILY, #90 TAB 3 Refills Prov:CHLOE SUÁREZ MD 03/02/25 Atorvastatin Calcium (LIPITOR) 40 Mg Tablet, 40 MG PO HS, #90 TAB 3 Refills Prov:CHLOE SUÁREZ MD 03/02/25 Aspirin (ASPIRIN 81MG CHEW TAB) 81 Mg Tab.chew, 81 MG PO DAILY, #90 TAB.CHEW 1 Refill Prov:CHLOE SUÁREZ MD 03/02/25 Reported Medications Ranolazine (Ranolazine ER) 500 Mg Tab.er.12h, 1 TAB PO BID for 30 Days, #60 TAB 0 Refills 02/28/25 Empagliflozin (Jardiance) 25 Mg Tablet, 1 TAB PO DAILY for 30 Days, #30 TAB 0 Refills 02/28/25 Amiodarone HCl (Amiodarone HCl) 200 Mg Tablet, 1 TAB PO DAILY for 30 Days, #30 TAB 0 Refills 02/28/25 Isosorbide Mononitrate (Isosorbide Mononitrate ER) 30 Mg Tab.er.24h, 1 TAB PO DAILY for 30 Days, #30 TAB 0 Refills 02/28/25 Glipizide (Glipizide) 5 Mg Tablet, 1 TAB PO BID for 30 Days, #60 TAB 0 Refills 02/28/25 Discontinued Reported Medications Amiodarone HCl (Amiodarone HCl) 200 Mg Tablet, 1 TAB PO DAILY for 30 Days, #30 TAB 0 Refills 02/28/25 Lisinopril (Lisinopril) 40 Mg Tablet, 1 TAB PO DAILY for 30 Days, #30 TAB 0 Refills 02/28/25 Metoprolol Tartrate (Metoprolol Tartrate) 25 Mg Tablet, 1 TAB PO BID for 30 Days, #60 TAB 0 Refills 02/28/25 Time spent arranging discharge: 1-30 minutes ARJUN Parker MD Mar 02, 2025 20:55
--- NOTE | 2025-03-02 21:25 | PN ---
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 Acute on chronic HFpEF w/ ICM and EF of 45-50% poa Repeat coronary angiogram revealing a flush occlusion of ostial RCA with patent left coronary system with aneurysmal changes noted and a mid LAD myocardial bridge Hypertension, POA Hyperlipidemia, POA Type 2 diabetes mellitus, uncontrolled, POA Leukocytosis, POA- Recent history of MN in 02/19/2025 in [place], POA w/ no PCI Remote history of MN in 2016 status post PCI in [place], POA Obesity, POA Tobacco use disorder, POA INTERVAL HISTORY: Pt awake alert and oriented x 3 denies any chest pain palpitations on sob, CXR with increased vascular congestion. He is chest pain free at this time and heparin gtt has been discontinued by cariology. He has been hemodynamically stable. we will continue to follow cardiology recs. 1 dose of Lasix 20mg IV ordered. REVIEW OF SYSTEMS: 12 point ROS reviewed with patient. Pertinent positives mentioned above. Otherwise negative. PHYSICAL EXAM: GENERAL: alert, weak, awake oriented x 3 HEENT: EOMI, Sclera non icteric, moist mucosa NECK: Supple, no JVD, trachea midline LUNGS: Diminished breath sounds bilaterally. No wheezes HEART: Regular rate and rhythm. Normal S1 and S2, without murmurs ABD: Abdomen soft, nontender. Bowel sounds present EXT: No clubbing cyanosis or edema NEURO: Alert and oriented to person, follows commands Vital Signs (last 8hr) Date Time Temp Pulse Resp B/P (MAP) Pulse Ox O2 Delivery O2 Flow Rate FiO2 03/02/25 15:43 98.4 73 18 113/73 95 Room Air LABS: Hematology Labs: Test 03/02/25 05:08 03/01/25 03:55 Range/Units White Blood Count 9.5 4.8-10.8 K/uL Red Blood Count 4.58 4.50-6.20 MIL/uL Hemoglobin 13.5 L 14.0-18.0 g/dL Hematocrit 39.7 L 42-54 % Mean Corpuscular Volume 86.7 79-99 fL Mean Corpuscular Hemoglobin 29.5 27.0-33.0 pg Mean Corpuscular Hemoglobin Concent 34.0 32.0-36.0 g/dL Red Cell Distribution Width 13.1 11.0-15.5 % Platelet Count 241 130-400 K/uL Mean Platelet Volume 10.2 7.5-10.5 fL Nucleated Red Blood Cells 0.0 0.0-0.19 % Immature Granulocyte % (Auto) 0.7 0-1 % Neutrophils (%) (Auto) 69.6 40.0-77.0 % Lymphocytes (%) (Auto) 17.4 L 21.0-51.0 % Monocytes (%) (Auto) 11.8 3.0-13.0 % Eosinophils (%) (Auto) 0.1 0.0-8.0 % Basophils (%) (Auto) 0.4 0.0-5.0 % Neutrophils # (Auto) 7.9 H 1.8-7.7 K/uL Lymphocytes # (Auto) 2.0 1.0-4.8 K/uL Monocytes # (Auto) 1.3 H 0.1-1.0 K/uL Eosinophils # (Auto) 0.01 0.00-0.70 K/uL Basophils # (Auto) 0.04 0.00-0.20 K/uL Absolute Immature Granulocyte (auto 0.08 0-1 K/uL Chemistry Labs: Test 03/02/25 15:42 03/02/25 05:08 03/01/25 12:07 Range/Units Whole Blood Glucose 205 H 70-110 MG/DL Sodium Level 138 136-145 mmol/L Potassium Level 3.6 3.5-5.1 mmol/L Chloride Level 107 101-111 mmol/L Carbon Dioxide Level 20 L 21-32 mmol/L Blood Urea Nitrogen 26 H 7-18 mg/dL Creatinine 0.9 0.5-1.3 mg/dL Glomerular Filtration Rate Calc 98 >90 mL/min Random Glucose 129 H 70-105 mg/dL Total Calcium 8.1 L 8.5-10.1 mg/dL Total Bilirubin 0.7 # 0.2-1.0 mg/dL Aspartate Amino Transf (AST/SGOT) 67 H 10-37 U/L Alanine Aminotransferase (ALT/SGPT) 58 # 12-78 U/L Alkaline Phosphatase 151 H 50-136 U/L B-Type Natriuretic Peptide 497 H 0-100 pg/mL Total Protein 6.4 6.0-8.3 g/dL Albumin 2.8 L 3.5-5.0 g/dL Magnesium Level 2.70 H 1.80-2.40 mg/dL Coagulation Labs: Test 03/02/25 13:19 03/01/25 00:28 Range/Units Activated Partial Thromboplast Time 30.4 # 26.3-35.5 SEC Prothrombin Time 11.7 H 9.6-11.6 SEC Prothromb Time International Ratio 1.12 0.85-1.15 DIAGNOSTICS / RADIOLOGY RESULTS: [ ] PLAN NEURO: Minimize central acting medications as possible. Maintain fall precautions, adequate lighting during the day PULMONARY: Supplemental 02 as needed. Maintain aspiration precautions at all times CARDIOVASCULAR: Follow hemodynamics. Vital signs per facility protocol GI & NUTRITION: Continue with nutritional support. Continue stool softeners and laxatives as needed. KIDNEYS & ELECTROLYTES: Strict monitoring of intake, output and overall fluid balance. Avoid nephrotoxic medications to the extent possible. Medications to be dosed according to renal function. Monitor electrolytes and replace as needed ENDOCRINE: Maintain blood glucose between 100-180 at all times. Hypoglycemia protocol in place INFECTIOUS DISEASE: Trend temperature, WBC and procalcitonin level Follow cultures, deescalate antibiotics as soon as possible. Panculture if new onset fever ONCOLOGY/HEMATOLOGY/COAGULATION: Monitor for s/s of bleeding Monitor hemoglobin, coagulation studies as needed SKIN: Pressure ulcer prevention per facility protocol Specialty mattress ORTHO/REHAB: Continue PT/OT Prophylaxis: Continue GI and DVT prophylaxis Code Status: Full Resuscitation Disposition: TBD Other: ATTESTATION BY PHYSICIAN I have evaluated the patient chart, medical records, and spoke with appropriate staff. I reviewed the documentation, medical decision making, and treatment plan as noted by the mid-level provider above. I agree with the findings and plan of care. Gaetano Rea MD, NELLY J AGACNP Mar 02, 2025 21:25
--- NOTE | 2025-03-03 07:38 | HMCIMG ---
EXAM: CR Chest, 1 View. CLINICAL HISTORY: Shortness of breath. COMPARISON: CR ??? CHEST 1VW ??? 03/01/2025. FINDINGS: Lungs: Stable right basal atelectasis. No focal infiltrate or acute parenchymal abnormality. Pleural spaces: No pleural effusion or pneumothorax. Mediastinum: Cardiac size and mediastinal contours within normal limits. Bones: No acute osseous abnormality. Diaphragm: Persistent elevation of the right hemidiaphragm, unchanged from prior. IMPRESSION: * Stable right basal atelectasis with persistently elevated right hemidiaphragm. * No new infiltrate, effusion, or pneumothorax. * No acute cardiopulmonary abnormality identified. Compared with 03/01/2025, findings remain stable with unchanged elevation of the right hemidiaphragm and mild right basal atelectasis. No new pulmonary or pleural pathology detected. /[place]
[2025-03-03] MEDS ORDERED: SACUBITRIL/VALSARTAN 1 EACH TABLET PO SCH (21:00)
== END 2025-03-02 18:18 | disposition home or self-care (01) | DRG 280 ==
LOC: 2BH 14:43 → 2CV 14:50 → 2DH 03-01 16:04
PROVIDERS: ADMIT Internal Medicine; ATTEND Internal Medicine
PROC: 4A023N7 Measurement of Cardiac Sampling and Pressure, Left Heart, Percutaneous Approach (ICD-10-PCS; principal; 2025-02-28)
PROC: B2111ZZ Fluoroscopy of Multiple Coronary Arteries using Low Osmolar Contrast (ICD-10-PCS; 2025-02-28)
PROC: B2151ZZ Fluoroscopy of Left Heart using Low Osmolar Contrast (ICD-10-PCS; 2025-02-28)
DX: I21.4 Non-ST elevation (NSTEMI) myocardial infarction (principal); I50.33 Acute on chronic diastolic (congestive) heart failure; D72.829 Elevated white blood cell count, unspecified; E11.65 Type 2 diabetes mellitus with hyperglycemia; E66.9 Obesity, unspecified; E78.5 Hyperlipidemia, unspecified; F17.200 Nicotine dependence, unspecified, uncomplicated; I25.10 Atherosclerotic heart disease of native coronary artery without angina pectoris; I25.2 Old myocardial infarction; I11.0 Hypertensive heart disease with heart failure; Z79.82 Long term (current) use of aspirin; Z79.84 Long term (current) use of oral hypoglycemic drugs; Z79.899 Other long term (current) drug therapy; Z82.49 Family history of ischemic heart disease and other diseases of the circulatory system; Z95.5 Presence of coronary angioplasty implant and graft; Z68.33 Body mass index [BMI] 33.0-33.9, adult
CPT/HCPCS: 36415; 36600; 71045; 80053; 80061; 82550; 82803; 82948; 83036; 83615; 83735; 83880; 84145; 84443; 84484; 85025; 85027; 85610; 85651; 85730; 86140; 93005; 93306; 93356; 93458; 99156; 99157; C1760; C1769; C1887; C1894; G0378; J0461; J0583; J1644; J1815; J1938; J2250; J3010; J3490; Q9967; Q9965